=== PATIENT | male | born 1950 | race Caucasian/White ===

== ENCOUNTER 2017-02-08 13:38 | Emergency (ER) | payer MEDICARE, OTHER ==
[~2017-02-08] VITALS: Ht 172.7 cm; Wt 77.1 kg
[~2017-02-08 13:38] MED LIST: ATIVAN0.5 MG ORAL; BENADRYL50 MG ORAL; CLOPIDOGREL75 MG; FLOMAX0.4 MG ORAL; LAMICTAL5 MG PO; LEXAPRO10 MG ORAL; LISINOPRIL5 MG; SIMVASTATIN5 MG ORAL; THORAZINE10 MG PO; TRAZODONE HCL150 MG ORAL; UNOBMED
[2017-02-08] MEDS ORDERED: ASPIRIN81 MG ORAL (14:14)
[2017-02-08] MEDS ORDERED: SIMVASTATIN40 MG ORAL (14:14)
[2017-02-08 14:29] VITALS: BP 146/92
[2017-02-08 14:41] LABS: BASOPHILS % (AUTO) 1.1 % (0.0-2.0); EOSINOPHILS % (AUTO) 1.4 % (0.0-3.0); LYMPHOCYTES % (AUTO) 24.4 % (20.0-45.0); MEAN CORPUSCULAR HEMOGLOBIN 30.7 PG (27.0-31.0); MEAN CORPUSCULAR HGB CONC 34.6 G/DL (32.0-36.0); MEAN CORPUSCULAR VOLUME 89 FL (80-99); MEAN PLATELET VOLUME 5.8 FL (6.5-10.1); MONOCYTES % (AUTO) 8.6 % (1.0-10.0); NEUTROPHILS % (AUTO) 64.5 % (45.0-75.0); PLATELET COUNT 410 K/UL (150-450); RED CELL DISTRIBUTION WIDTH 12.5 % (11.6-14.8); WHITE BLOOD COUNT 8.3 K/UL (4.8-10.8)
[2017-02-08 14:49] LABS: PROTHROMBIN TIME 10.3 SEC (9.30-11.50)
[2017-02-08 14:56] LABS: ANION GAP 11 mmol/L (5-15); CALCIUM 9.2 MG/DL (8.5-10.1); CARBON DIOXIDE 21 MMOL/L (21-32); CHLORIDE 104 MMOL/L (98-107); CREATININE 1.5 MG/DL (0.55-1.30); GLOMERULAR FILTRATION RATE 46.5 mL/min (>60); POTASSIUM 4.4 MMOL/L (3.5-5.1); SODIUM 136 MMOL/L (136-145)
[2017-02-08 15:01] LABS: ALANINE AMINOTRANSFERASE 40 U/L (12-78); ALBUMIN/GLOBULIN RATIO 0.9 (1.0-2.7); ASPARTATE AMINO TRANSFERASE 25 U/L (15-37); LIPASE 148 U/L (73-393); TOTAL PROTEIN 7.6 G/DL (6.4-8.2)
[2017-02-08 15:25] LABS: APPEARANCE,URINE CLEAR; KETONES,URINE NEGATIVE (NEGATIVE); LEUKOCYTE ESTERASE ,URINE NEGATIVE (NEGATIVE); NITRITE,URINE NEGATIVE (NEGATIVE); PH,URINE 5 (4.5-8.0); PROTEIN,URINE NEGATIVE (NEGATIVE); UROBILINOGEN,URINE NORMAL MG/DL (0.0-1.0)
[2017-02-08] MEDS ORDERED: TYLENOL EXTRA500 MG ORAL (15:44)
[2017-02-08] MEDS ORDERED: METAMUCIL POWD575 GM PO (15:44)
[2017-02-08] MEDS ORDERED: ZOFRAN4 M3 ORAL (15:44)
[2017-02-08 15:52] VITALS: BP_SYST 141; BP_SYST 146; BP_DIAS 87; BP_DIAS 92
--- NOTE | 2017-02-08 22:16 | Emergency Room Report ---
History of Present Illness General Chief Complaint: Diarrhea Source: Patient, EMS Present Illness HPI The patient is a 66-year-old male with a history of schizophrenia and anxiety disorder presenting for diarrhea. He states that he has had uncontrollable diarrhea for the past 3 days. He describes this as watery and brown. He denies any other complaints including nausea, vomiting, fever, chills, abdominal pain, fever, chills. He denies any recent travel or sick contacts. Allergies: Coded Allergies: LITHIUM (Unverified Allergy, Unknown, 12/19/13) Patient History Past Medical History: see triage record Pertinent Family History: none Reviewed Nursing Documentation: PMH: Agreed, PSxH: Agreed Nursing Documentation-PMH Hx Cardiac Problems: Yes - STENTS Hx Hypertension: Yes History Of Psychiatric Problem: Yes Review of Systems All Other Systems: negative except mentioned in HPI Physical Exam Vital Signs Date Time Temp Pulse Resp B/P (MAP) Pulse Ox O2 Delivery O2 Flow Rate FiO2 02/08/17 13:35 98.8 106 20 146/92 98 Room Air Sp02 EP Interpretation: reviewed, normal General Appearance: no apparent distress, alert, GCS 15, non-toxic Head: normocephalic, atraumatic Eyes: bilateral eye normal inspection, bilateral eye PERRL ENT: hearing grossly normal, normal pharynx, no angioedema, normal voice Neck: full range of motion, supple/symm/no masses Respiratory: chest non-tender, lungs clear, normal breath sounds, speaking full sentences Cardiovascular #1: regular rate, rhythm, no edema Gastrointestinal: normal bowel sounds, non tender, soft, non-distended, no guarding, no rebound Genitourinary: normal inspection, no CVA tenderness Musculoskeletal: back normal, gait/station normal, normal range of motion, non- tender Neurologic: alert, oriented x3, responsive, motor strength/tone normal, sensory intact, speech normal Psychiatric: judgement/insight normal, memory normal, mood/affect normal, no suicidal/homicidal ideation Skin: normal color, no rash, warm/dry, well hydrated Medical Decision Making PA Attestation Dr. Krause is my supervising physician. Patient management was discussed with my supervising physician Diagnostic Impression: Primary Impression: Diarrhea Qualified Codes: R19.7 - Diarrhea, unspecified ER Course The patient is a 66-year-old male with a history of schizophrenia and anxiety disorder presenting for diarrhea Differential diagnoses considered include but not limited to gastritis, pancreatitis, appendicitis, diverticulitis, among others PE: vitals are stable. Afebrile. NAD RRR Lungs CTA bilat Abd is soft and non tender. No guarding. Labs: Unremarkable. BUN/Cr elevated, consistent with past results The patient is given IV fluids and Zofran and states that he is feeling much better. This is most likely viral gastroenteritis. He'll be discharged home with the ER precautions. Laboratory Tests Test 02/08/17 14:05 02/08/17 15:15 White Blood Count 8.3 K/UL (4.8-10.8) Red Blood Count 4.80 M/UL (4.70-6.10) Hemoglobin 14.7 G/DL (14.2-18.0) Hematocrit 42.6 % (42.0-52.0) Mean Corpuscular Volume 89 FL (80-99) Mean Corpuscular Hemoglobin 30.7 PG (27.0-31.0) Mean Corpuscular Hemoglobin Concent 34.6 G/DL (32.0-36.0) Red Cell Distribution Width 12.5 % (11.6-14.8) Platelet Count 410 K/UL (150-450) Mean Platelet Volume 5.8 FL (6.5-10.1) L Neutrophils (%) (Auto) 64.5 % (45.0-75.0) Lymphocytes (%) (Auto) 24.4 % (20.0-45.0) Monocytes (%) (Auto) 8.6 % (1.0-10.0) Eosinophils (%) (Auto) 1.4 % (0.0-3.0) Basophils (%) (Auto) 1.1 % (0.0-2.0) Prothrombin Time 10.3 SEC (9.30-11.50) Prothrombin Time INR 1.0 (0.9-1.1) PTT 25 SEC (23-33) Sodium Level 136 MMOL/L (136-145) Potassium Level 4.4 MMOL/L (3.5-5.1) Chloride Level 104 MMOL/L (98-107) Carbon Dioxide Level 21 MMOL/L (21-32) Anion Gap 11 mmol/L (5-15) Blood Urea Nitrogen 27 mg/dL (7-18) H Creatinine 1.5 MG/DL (0.55-1.30) H Estimate Glomerular Filtration Rate 46.5 mL/min (>60) Glucose Level 137 MG/DL (74-106) H Calcium Level 9.2 MG/DL (8.5-10.1) Total Bilirubin 0.4 MG/DL (0.2-1.0) Aspartate Amino Transferase (AST) 25 U/L (15-37) Alanine Aminotransferase (ALT) 40 U/L (12-78) Alkaline Phosphatase 71 U/L (46-116) Total Protein 7.6 G/DL (6.4-8.2) Albumin 3.5 G/DL (3.4-5.0) Globulin 4.1 g/dL Albumin/Globulin Ratio 0.9 (1.0-2.7) L Lipase 148 U/L (73-393) Urine Color Pale yellow Urine Appearance Clear Urine pH 5 (4.5-8.0) Urine Specific [place] 1.020 (1.005-1.035) Urine Protein Negative (NEGATIVE) Urine Glucose (UA) Negative (NEGATIVE) Urine Ketones Negative (NEGATIVE) Urine Occult Blood Negative (NEGATIVE) Urine Nitrite Negative (NEGATIVE) Urine Bilirubin Negative (NEGATIVE) Urine Urobilinogen Normal MG/DL (0.0-1.0) Urine Leukocyte Esterase Negative (NEGATIVE) Lab Results Impression Unremarkable Last Vital Signs Date Time Temp Pulse Resp B/P (MAP) Pulse Ox O2 Delivery O2 Flow Rate FiO2 02/08/17 15:52 98.8 85 20 146/92 98 Room Air Status: improved Disposition: HOME, SELF-CARE Condition: Improved Scripts Psyllium Husk (with Sugar) (METAMUCIL POWDER) 575 Gm Powder 1 TBS PO BID, #575 GM Prov: TERZIAN,BROCK P.A. 02/08/17 Ondansetron* (ZOFRAN*) 4 Mg Tablet 4 MG ORAL Q6H Y for Nausea & Vomiting, #12 TAB Prov: TERZIAN,BROCK P.A. 02/08/17 Acetaminophen* (TYLENOL EXTRA STRENGTH*) 500 Mg Tablet 500 MG ORAL Q8H Y for Prn Headache/Temp > 101, #30 TAB 0 Refills Prov: TERZIAN,BROCK P.A. 02/08/17 Patient Instructions: Diarrhea, Adult Additional Instructions: I discussed my findings with the patient. All questions and concerns have been answered. Treatment and medication compliance have been addressed. I advised the patient that they need to follow up with PMD in 3-5 days. Return to ED if symptoms worsen, new symptoms arise Such as fever, blood in stools, or if needed for any reason. Patient verbalized understanding of discharge instructions. BROCK MONTEMAYOR Feb 08, 2017 22:16
== END 2017-02-08 15:55 | disposition home or self-care (01) ==
LOC: EDBD 13:38 → EMR 14:05
DX: R19.7 Diarrhea, unspecified (principal); I10 Essential (primary) hypertension; F20.9 Schizophrenia, unspecified; F41.9 Anxiety disorder, unspecified; Z88.8 Allergy status to other drugs, medicaments and biological substances
CPT/HCPCS: 36415; 80053; 81003; 83690; 85025; 85610; 85730; 96361; 96374; 99284; J2405

== ENCOUNTER 2017-10-25 08:57 | Outpatient (CLI) | payer MEDICARE ==
[~2017-10-25 08:57] MED LIST changes: +ASPIRIN81 MG ORAL; +METAMUCIL POWD575 GM PO; +SIMVASTATIN40 MG ORAL; +TYLENOL EXTRA500 MG ORAL; +ZOFRAN4 M3 ORAL
== END 2017-10-25 10:57 | disposition home or self-care (01) ==
LOC: ECT 08:57
DX: F33.2 Major depressive disorder, recurrent severe without psychotic features (principal); I10 Essential (primary) hypertension; E11.9 Type 2 diabetes mellitus without complications; I25.2 Old myocardial infarction; Z91.5 Personal history of self-harm; Z79.84 Long term (current) use of oral hypoglycemic drugs

== ENCOUNTER 2017-11-05 05:36 | Outpatient (RCR) | payer MEDICARE ==
[~2017-11-05] VITALS: Ht 170.2 cm; Wt 80.3 kg
[2017-11-05] VITALS (7 sets, daily range): BP systolic 99–129; BP diastolic 52–67
[2017-11-05] MEDS ORDERED: Succinylcholine 20mg/ml 10ml vial ONE ×2 (05:37)
[2017-11-05] MEDS ORDERED: NS 500ML ONE ×2 (05:37)
[2017-11-05] MEDS ORDERED: Methohexital Sodium Syr 100mg/10ml IVP ONE ×2 (05:37)
[2017-11-05] MEDS ORDERED: Midazolam 2mg/2ml Inj ONE ×2 (05:37)
[2017-11-05] MEDS ORDERED: Sodium Chloride 500ML 500 ML IV ONE (09:38)
[2017-11-07] MEDS ORDERED: Succinylcholine 20mg/ml 10ml vial ONE (08:00)
[2017-11-07] MEDS ORDERED: Methohexital Sodium Syr 100mg/10ml IVP ONE (08:00)
[2017-11-07] MEDS ORDERED: Midazolam 2mg/2ml Inj ONE (08:00)
[2017-11-07] MEDS ORDERED: NS 500ML ONE (08:00)
[2017-11-07 10:40] VITALS: BP_SYST 115; BP_SYST 154; BP_DIAS 66; BP_DIAS 72
[2017-11-07] MEDS ORDERED: Sodium Chloride 500ML 500 ML IV ONE (10:52)
[2017-11-07 10:55] VITALS: BP 154/66
[2017-11-07 11:00] VITALS: BP 140/72
[2017-11-07 11:05] VITALS: BP 142/64
[2017-11-07 11:10] VITALS: BP 139/72
[2017-11-09] MEDS ORDERED: Midazolam 2mg/2ml Inj ONE (08:00)
[2017-11-09] MEDS ORDERED: SUMAtriptan 6mg/0.5ml Inj SUBQ ONE (08:00)
[2017-11-09] MEDS ORDERED: NS 500ML ONE (08:00)
[2017-11-09] MEDS ORDERED: Methohexital Sodium Syr 100mg/10ml IVP ONE (08:00)
[2017-11-09] MEDS ORDERED: Sodium Chloride 500ML 500 ML IV ONE (08:35)
[2017-11-09 08:44] VITALS: BP 118/80
[2017-11-09 09:00] VITALS: BP 140/73
[2017-11-09 09:05] VITALS: BP 148/86
[2017-11-09 09:10] VITALS: BP 138/65
[2017-11-09 09:15] VITALS: BP 130/63
[2017-11-12 07:55] VITALS: BP 109/70
[2017-11-12] MEDS ORDERED: Midazolam 2mg/2ml Inj ONE (08:00)
[2017-11-12] MEDS ORDERED: Succinylcholine 20mg/ml 10ml vial ONE (08:00)
[2017-11-12] MEDS ORDERED: NS 500ML ONE (08:00)
[2017-11-12] MEDS ORDERED: Methohexital Sodium Syr 100mg/10ml IVP ONE (08:00)
[2017-11-12] MEDS ORDERED: Sodium Chloride 500ML 500 ML IV ONE (08:05)
[2017-11-12 08:10] VITALS: BP 130/67
[2017-11-12 08:15] VITALS: BP 128/69
[2017-11-12 08:20] VITALS: BP 130/60
[2017-11-12 08:25] VITALS: BP 116/63
[2017-11-14 09:39] VITALS: BP 111/66
[2017-11-14] MEDS ORDERED: Sodium Chloride 500ML 500 ML IV ONE (09:52)
[2017-11-14 10:00] VITALS: BP 127/60
[2017-11-14 10:05] VITALS: BP 118/59
[2017-11-14 10:10] VITALS: BP 111/57
[2017-11-14 10:15] VITALS: BP 108/58
[2017-11-16] MEDS ORDERED: Succinylcholine 20mg/ml 10ml vial ONE (07:00)
[2017-11-16] MEDS ORDERED: Midazolam 2mg/2ml Inj ONE (07:00)
[2017-11-16] MEDS ORDERED: Methohexital Sodium Syr 100mg/10ml IVP ONE (07:00)
[2017-11-16] MEDS ORDERED: NS 500ML ONE (07:00)
[2017-11-16 07:43] VITALS: BP 109/66
[2017-11-16] MEDS ORDERED: Sodium Chloride 500ML 500 ML IV ONE (07:53)
[2017-11-16 07:55] VITALS: BP 151/67
[2017-11-16 08:00] VITALS: BP 128/57
[2017-11-16 08:05] VITALS: BP 121/60
[2017-11-16 08:10] VITALS: BP 114/65
[2017-11-19] MEDS ORDERED: Midazolam 2mg/2ml Inj ONE (07:00)
[2017-11-19] MEDS ORDERED: Succinylcholine 20mg/ml 10ml vial ONE (07:00)
[2017-11-19] MEDS ORDERED: NS 500ML ONE (07:00)
[2017-11-19] MEDS ORDERED: Methohexital Sodium Syr 100mg/10ml IVP ONE (07:00)
[2017-11-19 09:00] VITALS: BP 112/71
[2017-11-19] MEDS ORDERED: Sodium Chloride 500ML 500 ML IV ONE (09:12)
[2017-11-19 09:15] VITALS: BP 135/55
[2017-11-19 09:20] VITALS: BP 135/58
[2017-11-19 09:25] VITALS: BP 113/61
[2017-11-19 09:29] VITALS: BP 112/71
[2017-11-19 09:30] VITALS: BP 113/54
[2017-11-21] MEDS ORDERED: Methohexital Sodium Syr 100mg/10ml IVP ONE (06:00)
[2017-11-21] MEDS ORDERED: Succinylcholine 20mg/ml 10ml vial ONE (06:00)
[2017-11-21] MEDS ORDERED: NS 500ML ONE (06:00)
[2017-11-21] MEDS ORDERED: Midazolam 2mg/2ml Inj ONE (06:00)
[2017-11-21] MEDS ORDERED: Sodium Chloride 500ML 500 ML IV ONE (10:05)
[2017-11-21 10:10] VITALS: BP 128/67
[2017-11-21 10:15] VITALS: BP 126/54
[2017-11-21 10:20] VITALS: BP 115/57
[2017-11-21 10:25] VITALS: BP 115/61
[2017-11-21 10:30] VITALS: BP 118/59
[2017-11-23] MEDS ORDERED: NS 500ML ONE (06:00)
[2017-11-23] MEDS ORDERED: Succinylcholine 20mg/ml 10ml vial ONE (06:00)
[2017-11-23] MEDS ORDERED: Midazolam 2mg/2ml Inj ONE (06:00)
[2017-11-23] MEDS ORDERED: Methohexital Sodium Syr 100mg/10ml IVP ONE (06:00)
[2017-11-23 08:31] VITALS: BP 108/67
[2017-11-23] MEDS ORDERED: Sodium Chloride 500ML 500 ML IV ONE (08:45)
[2017-11-23 08:50] VITALS: BP 138/72
[2017-11-23 08:55] VITALS: BP 117/64
[2017-11-23 09:00] VITALS: BP 116/60
[2017-11-23 09:05] VITALS: BP 115/59
== END 2017-11-23 | disposition home or self-care (01) ==
LOC: ECT 05:36
DX: F33.2 Major depressive disorder, recurrent severe without psychotic features (principal); I10 Essential (primary) hypertension; E78.5 Hyperlipidemia, unspecified; I25.10 Atherosclerotic heart disease of native coronary artery without angina pectoris; E11.9 Type 2 diabetes mellitus without complications; I25.2 Old myocardial infarction; F10.10 Alcohol abuse, uncomplicated
CPT/HCPCS: 90870; J0330; J2250; J3030; J7040

== ENCOUNTER 2017-11-28 08:28 | Outpatient (RCR) | payer MEDICARE | END 2017-12-23 | disposition home or self-care (01) | LOC: ECT 08:28 | DX: F33.9 Major depressive disorder, recurrent, unspecified (principal); Z53.9 Procedure and treatment not carried out, unspecified reason ==

== ENCOUNTER 2018-07-08 08:41 | Emergency (ER) | payer MEDICARE ==
[~2018-07-08] VITALS: Ht 170.2 cm; Wt 131.5 kg
--- NOTE | 2018-07-08 08:43 | NUR ---
ED Nurse Note: Patient walked into ED from home states that his indwelling jensen that has been placed [address] Mo Velazquez's office, he states that jensen is now leaking, not draining properly and wants to be replaced. Patient reports surgery scheduled 07/11/[address] Velazquez (patient does not know what surgery) patient states that he has been having jensen for 3 years, patient states he needs jensen due to incontinence. Patient is alert and awake x4 ambulatory. patient placed in the room and hospital gown provided, instructed to take off the pants for exam.
[2018-07-08 08:55] VITALS: BP 105/97
[2018-07-08 09:30] VITALS: BP 105/97
--- NOTE | 2018-07-08 09:40 | NUR ---
ER DISCHARGE NOTE: Patient is cleared to be discharged per ERMD Dr. Meza , pt is aox4, on room air, with stable vital signs. pt was given dc instructions, pt was able to verbalize understanding, patient reports having a surgery with Dr. Velazquez on 07/11. patient stated he will follow up with Dr. Velazquez. jensen is intact draining, no leakage noted. patient reports relief from discomfort. pt id band removed without complications. pt is able to ambulate with steady gait. pt took all belongings.
--- NOTE | 2018-07-08 09:40 | Emergency Room Report ---
History of Present Illness General Chief Complaint: Male Urogenital Problems Source: Patient Present Illness HPI Patient presents emergency department today complaining of urinary retention. Patient has a history of urinary retention with overflow incontinence. Patient is currently being cared by Dr. Velazquez. Patient's urologist placed a Jj approximately 3 weeks ago. Since then he has been able to urinate in the bag. However since last night he noted that urinary flow stopped in the Jj. Instead urine is seeping out around the Jj. He is complaining urinary distention and urgency. Denies any fever nausea vomiting diarrhea or chills. Denies any flank pain. No other complaints are noted. States that he try to call his urologist but there is no answer.No other modifying factors. No other associated signs and symptoms. No other complaints were noted. Allergies: Coded Allergies: LITHIUM (Unverified Allergy, Unknown, 12/19/13) Patient History Past Medical History: HTN, other - Urinary retention Past Surgical History: none Pertinent Family History: none Social History: Denies: smoking, alcohol use, drug use Reviewed Nursing Documentation: PMH: Agreed; PSxH: Agreed Nursing Documentation-PMH Past Medical History: No History, Except For Hx Hypertension: Yes Hx Asthma: No Hx COPD: No Review of Systems All Other Systems: negative except mentioned in HPI Physical Exam Vital Signs Date Time Temp Pulse Resp B/P (MAP) Pulse Ox O2 Delivery O2 Flow Rate FiO2 07/08/18 08:43 98.8 95 17 105/97 91 Room Air Sp02 EP Interpretation: reviewed, normal General Appearance: alert, moderate distress - Appears uncomfortable Head: atraumatic Eyes: bilateral eye normal inspection ENT: normal ENT inspection, hearing grossly normal, normal voice Neck: normal inspection, full range of motion, supple, no bony tend Respiratory: normal inspection, lungs clear, normal breath sounds, no respiratory distress, no retraction, no wheezing Cardiovascular #1: regular rate, rhythm, no edema Gastrointestinal: normal inspection, normal bowel sounds, soft, no guarding, no hernia, other - Mild suprapubic distention Genitourinary: no CVA tenderness Musculoskeletal: normal inspection, back normal, normal range of motion Neurologic: normal inspection, alert, responsive, speech normal Psychiatric: normal inspection, judgement/insight normal, mood/affect normal Skin: normal inspection, normal color, no rash Medical Decision Making Diagnostic Impression: Primary Impression: Jj catheter problem Additional Impression: Urine retention ER Course Patient presents emergency department today with urinary retention. Jj malfunction. Differential diagnoses include erosion of Jj, and Jj occlusion. Old Jj was removed new Jj was inserted. Patient had a large amount urine output and felt much more comfortable. Given the patient's feeling comfortable with urinary output now through the Jj patient can be discharged. Recommend close outpatient follow-up with patient's urologist Dr. Velazquez. Last Vital Signs Date Time Temp Pulse Resp B/P (MAP) Pulse Ox O2 Delivery O2 Flow Rate FiO2 07/08/18 08:55 98.8 95 17 105/97 91 Room Air Status: improved Disposition: HOME, SELF-CARE Condition: Stable Patient Instructions: Jj Catheter Care, Adult, Acute Urinary Retention, Male Kai Meza MD Jul 08, 2018 09:40
== END 2018-07-08 09:40 | disposition home or self-care (01) ==
LOC: EMR 09:00
DX: T83.9XXA Unspecified complication of genitourinary prosthetic device, implant and graft, initial encounter (principal); R33.9 Retention of urine, unspecified; I10 Essential (primary) hypertension; Z88.8 Allergy status to other drugs, medicaments and biological substances; X58.XXXA Exposure to other specified factors, initial encounter; Y92.9 Unspecified place or not applicable
CPT/HCPCS: 51702; 99284

== ENCOUNTER 2018-11-14 16:54 | Emergency (ER) | payer MEDICARE ==
[~2018-11-14] VITALS: Ht 170.2 cm; Wt 81.6 kg
[~2018-11-14 16:54] MED LIST changes: +CIPROFLOXACIN500 M2 ORAL
[2018-11-14 17:05] VITALS: BP 117/75
--- NOTE | 2018-11-14 17:13 | NUR ---
ED Nurse Note: Pt came in due to leakage from his indwelling jensen catheter. The cath was inserted 2 months ago and started leaking 1 week ago. Denies blood in his urine. Urologist was seen weeks ago. AAO x4, ambulatory. Noted old Jensen cath in place with some cloudy urine.
[2018-11-14] MEDS ORDERED: UNOBMED (17:41)
--- NOTE | 2018-11-14 17:50 | NUR ---
ED Nurse Note: Collected urine specimen then sent.
[2018-11-14 18:19] LABS: APPEARANCE,URINE CLOUDY; BILIRUBIN, URINE NEGATIVE (NEGATIVE); GLUCOSE, URINE (UA) NEGATIVE (NEGATIVE); KETONES,URINE 1+ (NEGATIVE); LEUKOCYTE ESTERASE ,URINE 3+ (NEGATIVE); NITRITE,URINE NEGATIVE (NEGATIVE); PH,URINE 5 (4.5-8.0); PROTEIN,URINE 3+ (NEGATIVE); UROBILINOGEN,URINE NORMAL MG/DL (0.0-1.0)
[2018-11-14 18:25] LABS: COLOR,URINE YELLOW
--- NOTE | 2018-11-14 18:27 | Emergency Room Report ---
History of Present Illness General Chief Complaint: Male Urogenital Problems Source: Patient, Medical Record Present Illness HPI 68-year-old male presents with leaking Jj that started his morning no known aggravating or alleviating factors, patient severity is mild, patient states that his pants keep getting wet no fevers no chills no abdominal pain patient states that he has a weak bladder and he sees a urologist he was initially going to go to his urologist today however his friend accidentally took him to the emergency room Allergies: Coded Allergies: LITHIUM (Unverified Allergy, Unknown, 12/19/13) Patient History Past Medical History: see triage record Reviewed Nursing Documentation: PMH: Agreed; PSxH: Agreed Nursing Documentation-PMH Past Medical History: No History, Except For Hx Hypertension: Yes Hx Asthma: No Hx COPD: No Review of Systems All Other Systems: negative except mentioned in HPI Physical Exam Vital Signs Date Time Temp Pulse Resp B/P (MAP) Pulse Ox O2 Delivery O2 Flow Rate FiO2 11/14/18 17:05 98.4 98 18 117/75 (89) 95 Room Air Sp02 EP Interpretation: reviewed, normal General Appearance: well appearing, no apparent distress, alert Head: normocephalic, atraumatic Eyes: bilateral eye PERRL, bilateral eye EOMI ENT: uvula midline, moist mucus membranes Neck: supple, thyroid normal, supple/symm/no masses Respiratory: lungs clear, no respiratory distress, no retraction, no accessory muscle use Cardiovascular #1: normal peripheral pulses, regular rate, rhythm, no edema, no gallop, no murmur Gastrointestinal: non tender, soft, no guarding, no rebound Genitourinary: other - Jj in place, patient with a ventral defect, chronic Musculoskeletal: normal inspection Neurologic: alert, oriented x3 Psychiatric: mood/affect normal Skin: no rash, warm/dry Medical Decision Making Diagnostic Impression: Primary Impression: Jj catheter problem Qualified Codes: T83.9XXA - Unspecified complication of genitourinary prosthetic device, implant and graft, initial encounter Additional Impression: UTI (urinary tract infection) Qualified Codes: T83.511A - Infection and inflammatory reaction due to indwelling urethral catheter, initial encounter; N39.0 - Urinary tract infection , site not specified ER Course Patient presents for Jj catheter replacement Jj was replaced Patient with UTI ABX disposition home with return precautions Laboratory Tests Test 11/14/18 17:50 Urine Color Yellow Urine Appearance Cloudy Urine pH 5 (4.5-8.0) Urine Specific [place] 1.020 (1.005-1.035) Urine Protein 3+ (NEGATIVE) H Urine Glucose (UA) Negative (NEGATIVE) Urine Ketones 1+ (NEGATIVE) H Urine Blood 4+ (NEGATIVE) H Urine Nitrite Negative (NEGATIVE) Urine Bilirubin Negative (NEGATIVE) Urine Urobilinogen Normal MG/DL (0.0-1.0) Urine Leukocyte Esterase 3+ (NEGATIVE) H Urine RBC 5-10 /HPF (0 - 0) H Urine WBC Tntc /HPF (0 - 0) H Urine Squamous Epithelial Cells Occasional /LPF Urine Bacteria Few /HPF (NONE) Last Vital Signs Date Time Temp Pulse Resp B/P (MAP) Pulse Ox O2 Delivery O2 Flow Rate FiO2 11/14/18 17:05 98.4 98 18 117/75 95 Room Air Disposition: HOME, SELF-CARE Condition: Stable Scripts Cefdinir (CEFDINIR) 300 Mg Capsule 300 MG PO BID for 10 Days, #20 CAP Prov: David Gonzalez MD 11/14/18 Referrals: [facility] Patient Instructions: Jj Catheter Care, Adult, [id number], Urinary Tract Infection Additional Instructions: The patient was provided with discharge instructions, notified to follow-up with a primary care doctor and or specialist in the next 24-48 hours, and to return to the ED if they have worsening of their symptoms. Please note that this report is being documented using [employer] technology. This can lead to erroneous entry secondary to incorrect interpretation by the dictating instrument. FOLLOW-UP WITH YOUR UROLOGIST David Mcwilliams MD Nov 14, 2018 18:27
[2018-11-14] MEDS ORDERED: CEFDINIR300 MG PO (18:41)
[2018-11-14 18:56] VITALS: BP 125/70
--- NOTE | 2018-11-14 18:56 | NUR ---
ER DISCHARGE NOTE: Patient is cleared to be discharged per ERMD, pt is aox4, on room air, with stable vital signs. pt was given dc and prescription instructions, pt was able to verbalize understanding, pt id band removed without complications. pt is able to ambulate with steady gait. pt took all belongings and left with his new jensen cath/leg bag.
== END 2018-11-14 18:56 | disposition home or self-care (01) ==
LOC: EMR 18:40
DX: T83.9XXA Unspecified complication of genitourinary prosthetic device, implant and graft, initial encounter (principal); T83.511A Infection and inflammatory reaction due to indwelling urethral catheter, initial encounter; I10 Essential (primary) hypertension; Z88.8 Allergy status to other drugs, medicaments and biological substances; N39.0 Urinary tract infection, site not specified; Y84.6 Urinary catheterization as the cause of abnormal reaction of the patient, or of later complication, without mention of misadventure at the time of the procedure; Y92.9 Unspecified place or not applicable
CPT/HCPCS: 51702; 81003; 87086; 99284

== ENCOUNTER 2018-11-21 10:27 | Emergency (ER) | payer MEDICARE ==
[~2018-11-21] VITALS: Ht 170.2 cm; Wt 81.6 kg
[~2018-11-21 10:27] MED LIST changes: +CEFDINIR300 MG PO
--- NOTE | 2018-11-21 10:56 | Emergency Room Report ---
History of Present Illness General Chief Complaint: General Complaint Source: Patient Present Illness HPI Presents with allegedly leaking Jj. He said he stood up to urinate this morning and urine sprayed from he does not know where. The Jj was placed yesterday at [facility]. They told him he had a urinary tract infection. He got an IV dose of antibiotics there. He was discharged with antibiotics and he is not sure which ones. He denies fevers and chills. He denies abdominal pain. No hematuria. The patient was seen here November 14. He had similar complaints at that time. He had a urinary tract infection at that time. Culture grew yeast. Patient complains of anxiety. He states he takes Ativan 2 mg at least daily. No sore throat, chest pain, palpitations, nausea, vomiting, diarrhea, shortness of breath, joint pain, rashes, depression, anxiety, visual changes, headache. Allergies: Coded Allergies: LITHIUM (Unverified Allergy, Unknown, 12/19/13) Patient History Past Medical History: see triage record Social History: Denies: smoking - Murmur Social History Narrative with friend Reviewed Nursing Documentation: PMH: Agreed; PSxH: Agreed Nursing Documentation-PMH Past Medical History: No History, Except For Hx Hypertension: Yes Hx Asthma: No Hx COPD: No Review of Systems All Other Systems: negative except mentioned in HPI Physical Exam Vital Signs Date Time Temp Pulse Resp B/P (MAP) Pulse Ox O2 Delivery O2 Flow Rate FiO2 11/21/18 10:34 98.4 108 16 131/77 (95) 95 Room Air Sp02 EP Interpretation: reviewed, normal General Appearance: well appearing, no apparent distress, GCS 15 Head: normocephalic Eyes: bilateral eye normal inspection, bilateral eye PERRL, bilateral eye EOMI ENT: moist mucus membranes Cardiovascular #1: regular rate, rhythm Gastrointestinal: normal inspection, non tender, soft, no mass Genitourinary: no CVA tenderness, other - hypospadias -16 [place] Jj present Musculoskeletal: gait/station normal Neurologic: alert Psychiatric: depressed affect, other - Flat affect Skin: no rash Medical Decision Making Diagnostic Impression: Primary Impression: Jj catheter problem Qualified Codes: T83.9XXA - Unspecified complication of genitourinary prosthetic device, implant and graft, initial encounter Additional Impressions: Hypospadias Qualified Codes: Q54.1 - Hypospadias, penile UTI (urinary tract infection) Qualified Codes: T83.511D - Infection and inflammatory reaction due to indwelling urethral catheter, subsequent encounter; N39.0 - Urinary tract infection, site not specified Anxiety Major depression Qualified Codes: F33.9 - Major depressive disorder, recurrent, unspecified ER Course Patient presents with allegedly leaking Jj with hypospadias. Differential includes blocked Jj, urethral laxity, delusions, UTI amongst others. The Jj will be replaced with a larger catheter. Analysis will be obtained. Allegedly he is on antibiotics at this time but does not know which ones. Records will be obtained from [facility]. The patient will be given a dose of Ativan. No leakage after larger Jj placed. Urinalysis with pyuria however antibiotics have already been started. He also has a prescription at his [id number]. It is unclear what the prescription is. Records have been requested from [facility]. At the time of this dictation they are not available. The patient's anxiety is improved. Patient stable for outpatient observation and treatment. Laboratory Tests Test 11/21/18 11:00 Urine Color Yellow Urine Appearance Cloudy Urine pH 5 (4.5-8.0) Urine Specific [place] 1.025 (1.005-1.035) Urine Protein 3+ (NEGATIVE) H Urine Glucose (UA) Negative (NEGATIVE) Urine Ketones Negative (NEGATIVE) Urine Blood 2+ (NEGATIVE) H Urine Nitrite Negative (NEGATIVE) Urine Bilirubin Negative (NEGATIVE) Urine Urobilinogen Normal MG/DL (0.0-1.0) Urine Leukocyte Esterase 3+ (NEGATIVE) H Urine RBC 2-4 /HPF (0 - 0) H Urine WBC 60-80 /HPF (0 - 0) H Urine Squamous Epithelial Cells None /LPF (NONE/OCC) Urine Bacteria Few /HPF (NONE) Last Vital Signs Date Time Temp Pulse Resp B/P (MAP) Pulse Ox O2 Delivery O2 Flow Rate FiO2 11/21/18 11:13 98.4 108 16 131/77 95 Room Air Status: improved Disposition: HOME, SELF-CARE Condition: Improved Antonio Watson MD Nov 21, 2018 10:56
[2018-11-21] MEDS ORDERED: LORazepam 1mg tab ORAL ONE (11:00)
--- NOTE | 2018-11-21 11:00 | NUR ---
ED Nurse Note: pt walked in due to catheter leaking, pt stated that the catheter was placed in [place] yesterday, denies pain. pt is seen by ermd. catheter replaced with F18 catheter and connected to UB, pt able to tolerate the procedure, urine sent to lab.
--- NOTE | 2018-11-21 11:05 | NUR ---
ED Nurse Note: pt medicated as ordered. pt able to tolerate po meds
[2018-11-21 11:13] VITALS: BP 131/77
[2018-11-21 11:32] LABS: APPEARANCE,URINE CLOUDY; BILIRUBIN, URINE NEGATIVE (NEGATIVE); GLUCOSE, URINE (UA) NEGATIVE (NEGATIVE); KETONES,URINE NEGATIVE (NEGATIVE); LEUKOCYTE ESTERASE ,URINE 3+ (NEGATIVE); NITRITE,URINE NEGATIVE (NEGATIVE); PH,URINE 5 (4.5-8.0); PROTEIN,URINE 3+ (NEGATIVE); UROBILINOGEN,URINE NORMAL MG/DL (0.0-1.0)
[2018-11-21 11:42] LABS: COLOR,URINE YELLOW
[2018-11-21 12:36] VITALS: BP 131/77
--- NOTE | 2018-11-21 12:36 | NUR ---
ER DISCHARGE NOTE: Patient is cleared to be discharged per ERMD, pt is aox4, on room air, with stable vital signs. pt was given dc and prescription instructions, pt was able to verbalize understanding, pt id band removed without complications. pt is able to ambulate with steady gait. pt took all belongings.
== END 2018-11-21 12:36 | disposition home or self-care (01) ==
LOC: EMR 11:00
DX: T83.9XXA Unspecified complication of genitourinary prosthetic device, implant and graft, initial encounter (principal); Y84.6 Urinary catheterization as the cause of abnormal reaction of the patient, or of later complication, without mention of misadventure at the time of the procedure; Y92.9 Unspecified place or not applicable; Q54.9 Hypospadias, unspecified; N39.0 Urinary tract infection, site not specified; F41.9 Anxiety disorder, unspecified; F32.9 Major depressive disorder, single episode, unspecified; I10 Essential (primary) hypertension; Z79.899 Other long term (current) drug therapy
CPT/HCPCS: 51702; 81003; 87086; 99284

== ENCOUNTER 2019-01-11 13:35 | Inpatient (IN) | payer MEDICARE ==
[~2019-01-11] VITALS: Ht 170.2 cm; Wt 75.4 kg
[2019-01-11 13:47] VITALS: BP 104/73
--- NOTE | 2019-01-11 13:50 | NUR ---
ED Nurse Note: Patient brought in to ER by ambulance from [facility] due to "Being depressed all of sudden." Patient alert and oriented x4 and bedridden. Skin clean and intact. pt is crying for being sad. No acute distress noted at this time.
[2019-01-11] MEDS ORDERED: Venlafaxine XR 150mg cap ORAL ONE (14:30)
[2019-01-11 14:46] LABS: APPEARANCE,URINE SLIGHTLY CLOUDY; BILIRUBIN, URINE NEGATIVE (NEGATIVE); GLUCOSE, URINE (UA) NEGATIVE (NEGATIVE); KETONES,URINE 1+ (NEGATIVE); LEUKOCYTE ESTERASE ,URINE 3+ (NEGATIVE); NITRITE,URINE POSITIVE (NEGATIVE); PH,URINE 5 (4.5-8.0); PROTEIN,URINE 3+ (NEGATIVE); UROBILINOGEN,URINE 1 MG/DL (0.0-1.0)
[2019-01-11 14:53] LABS: BASOPHILS % (AUTO) 0.8 % (0.0-2.0); HEMATOCRIT 45.3 % (42.0-52.0); HEMOGLOBIN 15.4 G/DL (14.2-18.0); LYMPHOCYTES % (AUTO) 24.3 % (20.0-45.0); MEAN CORPUSCULAR VOLUME 85 FL (80-99); MONOCYTES % (AUTO) 7.9 % (1.0-10.0); PLATELET COUNT 295 K/UL (150-450); RED BLOOD COUNT 5.32 M/UL (4.70-6.10); RED CELL DISTRIBUTION WIDTH 12.4 % (11.6-14.8); WHITE BLOOD COUNT 9.2 K/UL (4.8-10.8)
[2019-01-11 14:56] LABS: COLOR,URINE YELLOW
--- NOTE | 2019-01-11 14:58 | NUR ---
ED Nurse Note: pt is not crying anymore.
--- NOTE | 2019-01-11 14:58 | NUR ---
ED Nurse Note: pt crying and stated "I don't want to go back where I came from. that is very depressing place!" pt was informed that he will be admitted.
[2019-01-11 15:01] LABS: ANION GAP 8 mmol/L (5-15); BLOOD UREA NITROGEN 27 mg/dL (7-18); CALCIUM 9.4 MG/DL (8.5-10.1); CARBON DIOXIDE 28 MMOL/L (21-32); CHLORIDE 107 MMOL/L (98-107); CREATININE 1.3 MG/DL (0.55-1.30); POTASSIUM 4.5 MMOL/L (3.5-5.1); SODIUM 143 MMOL/L (136-145)
[2019-01-11 15:05] LABS: ALANINE AMINOTRANSFERASE 15 U/L (12-78); ALBUMIN 3.3 G/DL (3.4-5.0); ALBUMIN/GLOBULIN RATIO 0.8 (1.0-2.7); ALKALINE PHOSPHATASE 70 U/L (46-116); ASPARTATE AMINO TRANSFERASE 15 U/L (15-37); BILIRUBIN,TOTAL 0.4 MG/DL (0.2-1.0)
[2019-01-11] MEDS ORDERED: cefTRIAXone 1 GM in NS 55 ML IVPB ONE (15:30)
--- NOTE | 2019-01-11 16:00 | NUR ---
ED Nurse Note: pt denied the idea of hurting himself and others. pt stated "I was just too depressed to be there." pt calm and cooperative since he heard he will be admitted.
--- NOTE | 2019-01-11 16:24 | Emergency Room Report ---
History of Present Illness General Chief Complaint: Behavioral Complaint Source: Patient Present Illness HPI 68-year-old male presents ED for evaluation. Patient coming from [facility] stating that he is suicidal and depressed. Does not have a plan. States he feels very anxious. History of schizophrenia and depression. States he has been compliant with his medications but states they are not helping. Denies alcohol or drug use. Denies hearing voices. No other aggravating relieving factors. Denies any other associated symptoms Allergies: Coded Allergies: LITHIUM (Unverified Allergy, Unknown, 12/19/13) Patient History Past Medical History: HTN Past Surgical History: none Pertinent Family History: none Social History: Denies: smoking, alcohol use, drug use Immunizations: UTD Reviewed Nursing Documentation: PMH: Agreed; PSxH: Agreed Nursing Documentation-PMH Hx Cardiac Problems: No - schizophrenia, depression Hx Hypertension: Yes Hx Asthma: No Hx COPD: No Review of Systems All Other Systems: negative except mentioned in HPI Physical Exam Vital Signs Date Time Temp Pulse Resp B/P (MAP) Pulse Ox O2 Delivery O2 Flow Rate FiO2 01/11/19 13:45 97.9 100 18 104/73 (83) 96 Room Air Sp02 EP Interpretation: reviewed, normal General Appearance: no apparent distress, alert, GCS 15, non-toxic Head: normocephalic Eyes: bilateral eye normal inspection, bilateral eye PERRL ENT: normal ENT inspection Neck: normal inspection Respiratory: normal inspection Cardiovascular #1: normal inspection Gastrointestinal: normal inspection Rectal: deferred Genitourinary: no CVA tenderness, other - jensen catheter in place Musculoskeletal: normal inspection Neurologic: alert, oriented x3, responsive, motor strength/tone normal, sensory intact, speech normal Psychiatric: depressed affect, anxious Skin: other - see nursing notes Lymphatic: normal inspection Medical Decision Making Diagnostic Impression: Primary Impression: Acute encephalopathy Additional Impressions: UTI (urinary tract infection) Qualified Codes: T83.511A - Infection and inflammatory reaction due to indwelling urethral catheter, initial encounter; N39.0 - Urinary tract infection , site not specified Major depression Qualified Codes: F33.1 - Major depressive disorder, recurrent, moderate Suicidal ideations ER Course Hospital Course 68-year-old male presents to ED for suicidal ideation. History of depression. Differential diagnoses include: Major depressive disorder, unspecified psychosis , EtOH abuse, drug abuse Clinical course Patient placed on stretcher. On one to one observation. After initial history and physical I ordered labs, IVFs, UA U. tox Labs-electrolytes normal, aspirin/Tylenol levels normal, EtOH level normal, U. tox negative, UA + bacteria Patient given dose of Effexor in ED. Patient cannot be medically cleared due to indwelling Jensen catheter. Patient will require admission given antibiotics. Discussed case with Dr. Quezada and she agrees to consult. Patient will be admitted to Dr Adkins's service i. I feel this is a highly complex case requiring extensive working including EKG/Rhythm strip, Xray/CT/US, Blood/urine lab work, repeat exams while in ED, and administration of strong opiates/narcotics for pain control, admission to hospital or close patient follow up. diagnosis - acute encephalopathy, UTI, major depression, suicidal ideations admitted to floor in serious condition Labs Test 01/11/19 14:22 01/11/19 14:26 White Blood Count 9.2 K/UL (4.8-10.8) Red Blood Count 5.32 M/UL (4.70-6.10) Hemoglobin 15.4 G/DL (14.2-18.0) Hematocrit 45.3 % (42.0-52.0) Mean Corpuscular Volume 85 FL (80-99) Mean Corpuscular Hemoglobin 28.9 PG (27.0-31.0) Mean Corpuscular Hemoglobin Concent 34.0 G/DL (32.0-36.0) Red Cell Distribution Width 12.4 % (11.6-14.8) Platelet Count 295 K/UL (150-450) Mean Platelet Volume 5.3 FL (6.5-10.1) Neutrophils (%) (Auto) 66.0 % (45.0-75.0) Lymphocytes (%) (Auto) 24.3 % (20.0-45.0) Monocytes (%) (Auto) 7.9 % (1.0-10.0) Eosinophils (%) (Auto) 1.0 % (0.0-3.0) Basophils (%) (Auto) 0.8 % (0.0-2.0) Sodium Level 143 MMOL/L (136-145) Potassium Level 4.5 MMOL/L (3.5-5.1) Chloride Level 107 MMOL/L (98-107) Carbon Dioxide Level 28 MMOL/L (21-32) Anion Gap 8 mmol/L (5-15) Blood Urea Nitrogen 27 mg/dL (7-18) Creatinine 1.3 MG/DL (0.55-1.30) Estimat Glomerular Filtration Rate 54.6 mL/min (>60) Glucose Level 98 MG/DL (74-106) Calcium Level 9.4 MG/DL (8.5-10.1) Total Bilirubin 0.4 MG/DL (0.2-1.0) Aspartate Amino Transf (AST/SGOT) 15 U/L (15-37) Alanine Aminotransferase (ALT/SGPT) 15 U/L (12-78) Alkaline Phosphatase 70 U/L (46-116) Total Protein 7.7 G/DL (6.4-8.2) Albumin 3.3 G/DL (3.4-5.0) Globulin 4.4 g/dL Albumin/Globulin Ratio 0.8 (1.0-2.7) Salicylates Level 0.8 ug/mL (2.8-20) Acetaminophen Level < 2 MCG/ML (10-30) Valproic Acid (Depakene) Level 91 MCG/ML (50-100) Serum Alcohol < 3 mg/dL Urine Color Yellow Urine Appearance Slightly cloudy Urine pH 5 (4.5-8.0) Urine Specific [place] 1.020 (1.005-1.035) Urine Protein 3+ (NEGATIVE) Urine Glucose (UA) Negative (NEGATIVE) Urine Ketones 1+ (NEGATIVE) Urine Blood 3+ (NEGATIVE) Urine Nitrite Positive (NEGATIVE) Urine Bilirubin Negative (NEGATIVE) Urine Urobilinogen 1 MG/DL (0.0-1.0) Urine Leukocyte Esterase 3+ (NEGATIVE) Urine RBC 5-10 /HPF (0 - 0) Urine WBC 60-80 /HPF (0 - 0) Urine Squamous Epithelial Cells Occasional /LPF Urine Bacteria Many /HPF (NONE) Urine Opiates Screen Negative (NEGATIVE) Urine Barbiturates Screen Negative (NEGATIVE) Phencyclidine (PCP) Screen Negative (NEGATIVE) Urine Amphetamines Screen Negative (NEGATIVE) Urine Benzodiazepines Screen Positive (NEGATIVE) Urine Cocaine Screen Negative (NEGATIVE) Urine Marijuana (THC) Screen Negative (NEGATIVE) Last Vital Signs Date Time Temp Pulse Resp B/P (MAP) Pulse Ox O2 Delivery O2 Flow Rate FiO2 10/19/19 13:47 100 18 Room Air 01/11/19 13:47 97.9 104/73 96 Status: improved Disposition: ADMITTED INPATIENT Condition: Serious Referrals: NON PHYSICIAN (PCP) Bassam Austin MD Jan 11, 2019 16:24
--- NOTE | 2019-01-11 17:50 | NUR ---
ED Nurse Note: report given to Angelina RN
--- NOTE | 2019-01-11 18:15 | NUR ---
ED Nurse Note: pt left unit with 1 underwriting technician in stable condition.
[2019-01-11 18:30] VITALS: BP 124/71
--- NOTE | 2019-01-11 18:31 | NUR ---
NURSE NOTES: RECEIVED PATIENT A/A/OX3, ABLE TO VERBALIZE NEEDS. PATIENT IS CALM AND KEPT COMFORTABLE. PERSONAL BELONGINGS REVIEWED AND NOTED. V/S TAKEN AND RECORDED. AFEBRILE. SKIN IS INTACT. PATIENT HAS F/C PATENT AND DRAINING WELL. MED REC REVIEWED. KEEP BED IN THE LOWEST POSITION. SIDERAILS ARE UP X3. CALL LIGHT IS WITHIN REACH. WILL NOTIFY PMD FOR ADMISSION ORDERS. WILL CONT TO MONITOR.
--- NOTE | 2019-01-11 19:00 | NUR ---
HAND-OFF: Report given to Lexie.
--- NOTE | 2019-01-11 19:30 | NUR ---
NURSE NOTES: Received patient in bed, awake, but easily falling asleep, able to make his needs known, VSS, afebrile, able to make his needs known, call light is within reach, bed is lowered, locked and alarm is on, IV site is clean dry and intact. Will continue to monitor for comfort and safety.
[2019-01-11 20:00] VITALS: BP 107/62
[2019-01-11] MEDS ORDERED: HYDROcodone/Acetamin 5/325 tab ORAL PRN (20:00)
[2019-01-11] MEDS: Atorvastatin 20mg tab ORAL SCH (20:31)
[2019-01-11 21:36] VITALS: BP 107/62
[2019-01-11] MEDS: LORazepam 0.5mg tab ORAL PRN (22:21)
[2019-01-12] VITALS: BP 120/67
[2019-01-12] MEDS ORDERED: cefTRIAXone 2 GM in D5W 55 ML IVPB SCH (03:00)
[2019-01-12 04:00] VITALS: BP 109/69
[2019-01-12] MEDS: LORazepam 0.5mg tab ORAL PRN (04:12)
[2019-01-12 06:18] LABS: EOSINOPHILS % (AUTO) 1.9 % (0.0-3.0); HEMATOCRIT 41.4 % (42.0-52.0); HEMOGLOBIN 14.1 G/DL (14.2-18.0); LYMPHOCYTES % (AUTO) 25.8 % (20.0-45.0); MEAN CORPUSCULAR VOLUME 85 FL (80-99); MONOCYTES % (AUTO) 8.3 % (1.0-10.0); PLATELET COUNT 260 K/UL (150-450); RED BLOOD COUNT 4.86 M/UL (4.70-6.10); RED CELL DISTRIBUTION WIDTH 12.4 % (11.6-14.8); WHITE BLOOD COUNT 6.6 K/UL (4.8-10.8)
[2019-01-12 06:59] LABS: ANION GAP 7 mmol/L (5-15); BLOOD UREA NITROGEN 25 mg/dL (7-18); CALCIUM 8.4 MG/DL (8.5-10.1); CARBON DIOXIDE 26 MMOL/L (21-32); CHLORIDE 109 MMOL/L (98-107); CHOLESTEROL 100 MG/DL (< 200); CREATININE 1.2 MG/DL (0.55-1.30); HDL CHOLESTEROL 31 MG/DL (40-60); POTASSIUM 4.4 MMOL/L (3.5-5.1); SODIUM 142 MMOL/L (136-145); TRIGLYCERIDES 44 MG/DL (30-150)
--- NOTE | 2019-01-12 07:08 | NUR ---
HAND-OFF: Report given to Anastasiya ABURTO.
[2019-01-12 08:00] VITALS: BP 130/75
--- NOTE | 2019-01-12 08:00 | NUR ---
NURSE NOTES: Patient is alert to name,respirations unlabored.patient Jj catheter is in place and draining yellow urine.Patient eating breakfast ,bed alarm is laborer concrete plant light within reach.
[2019-01-12] MEDS: Aspirin Baby 81mg ORAL SCH (08:29)
[2019-01-12] MEDS: Lisinopril 2.5mg tab ORAL SCH (08:30)
[2019-01-12] MEDS: Enoxaparin 40mg Inj SUBQ SCH (08:31)
--- NOTE | 2019-01-12 09:30 | NUR ---
CHARGE NURSE NOTE: Pt is very anxious, Ativan 0.5 mg PO is not helping. was called, message left.
[2019-01-12] MEDS: LORazepam 1mg tab ORAL PRN ×3 (09:46→21:57)
--- NOTE | 2019-01-12 09:47 | History & Physical ---
History and Physical History & Physicial seen and examined. Dictation completed on 943 AM Wilber Adkins MD Jan 12, 2019 09:47
--- NOTE | 2019-01-12 09:48 | General Progress Note ---
Assessment/Plan Assessment/Plan: Full Dictation in progress A/P: 1- SIRS 2- UTI 3- PSych 4- Incontinency/Neurologic bladder Plan; Change abx to cefepim will monitor pending cultures Psych consulted Subjective Allergies: Coded Allergies: LITHIUM (Unverified Allergy, Unknown, 12/19/13) Objective Last 24 Hour Vital Signs Date Time Temp Pulse Resp B/P (MAP) Pulse Ox O2 Delivery O2 Flow Rate FiO2 01/12/19 08:30 130/75 01/12/19 08:00 97.7 73 18 130/75 (93) 96 01/12/19 04:00 97.0 82 19 109/69 (82) 01/12/19 00:00 98.6 64 19 120/67 (84) 96 01/11/19 21:36 97.0 60 19 107/62 (77) 98 01/11/19 21:11 Room Air 01/11/19 21:00 Room Air 01/11/19 20:00 97.2 60 19 107/62 (77) 98 01/11/19 18:30 97.7 64 18 124/71 (88) 97 01/11/19 18:15 98.3 89 18 108/77 98 Room Air 01/11/19 18:03 97.9 01/11/19 13:47 100 18 Room Air 01/11/19 13:47 97.9 87 18 104/73 96 Room Air 01/11/19 13:45 97.9 100 18 104/73 (83) 96 Room Air Intake and Output 01/11/19 01/12/19 19:00 07:00 Intake Total 55 ml Balance 55 ml Intake Oral 0 ml IV Total 55 ml # Bowel Movements 2 Laboratory Tests 01/11/19 14:22: White Blood Count 9.2, Red Blood Count 5.32, Hemoglobin 15.4, Hematocrit 45.3, Mean Corpuscular Volume 85, Mean Corpuscular Hemoglobin 28.9, Mean Corpuscular Hemoglobin Concent 34.0, Red Cell Distribution Width 12.4, Platelet Count 295, Mean Platelet Volume 5.3L, Neutrophils (%) (Auto) 66.0, Lymphocytes (%) (Auto) 24.3, Monocytes (%) (Auto) 7.9, Eosinophils (%) (Auto) 1.0, Basophils (%) (Auto ) 0.8, Sodium Level 143, Potassium Level 4.5, Chloride Level 107, Carbon Dioxide Level 28, Anion Gap 8, Blood Urea Nitrogen 27H, Creatinine 1.3, Estimat Glomerular Filtration Rate 54.6, Glucose Level 98, Calcium Level 9.4, Total Bilirubin 0.4, Aspartate Amino Transf (AST/SGOT) 15, Alanine Aminotransferase ( ALT/SGPT) 15, Alkaline Phosphatase 70, Pro-B-Type Natriuretic Peptide 240H, Total Protein 7.7, Albumin 3.3L, Globulin 4.4, Albumin/Globulin Ratio 0.8L, Salicylates Level 0.8L, Acetaminophen Level < 2L, Valproic Acid (Depakene) Level 91, Serum Alcohol < 3 01/11/19 14:26: Urine Color Yellow, Urine Appearance Slightly cloudy, Urine pH 5, Urine Specific [place] 1.020, Urine Protein 3+H, Urine Glucose (UA) Negative, Urine Ketones 1+H, Urine Blood 3+H, Urine Nitrite PositiveH, Urine Bilirubin Negative , Urine Urobilinogen 1H, Urine Leukocyte Esterase 3+H, Urine RBC 5-10H, Urine WBC 60-80H, Urine Squamous Epithelial Cells Occasional, Urine Bacteria ManyH, Urine Opiates Screen Negative, Urine Barbiturates Screen Negative, Phencyclidine (PCP) Screen Negative, Urine Amphetamines Screen Negative, Urine Benzodiazepines Screen PositiveH, Urine Cocaine Screen Negative, Urine Marijuana (THC) Screen Negative 01/12/19 05:30: White Blood Count 6.6, Red Blood Count 4.86, Hemoglobin 14.1L, Hematocrit 41.4L , Mean Corpuscular Volume 85, Mean Corpuscular Hemoglobin 29.0, Mean Corpuscular Hemoglobin Concent 34.1, Red Cell Distribution Width 12.4, Platelet Count 260, Mean Platelet Volume 5.2L, Neutrophils (%) (Auto) 63.0, Lymphocytes ( %) (Auto) 25.8, Monocytes (%) (Auto) 8.3, Eosinophils (%) (Auto) 1.9, Basophils (%) (Auto) 1.0, Sodium Level 142, Potassium Level 4.4, Chloride Level 109H, Carbon Dioxide Level 26, Anion Gap 7, Blood Urea Nitrogen 25H, Creatinine 1.2, Estimat Glomerular Filtration Rate 59.9, Glucose Level 113H, Calcium Level 8.4L , Hemoglobin A1c 5.7, Troponin I 0.000, Triglycerides Level 44, Cholesterol Level 100, LDL Cholesterol 63, HDL Cholesterol 31L, Cholesterol/HDL Ratio 3.2L, Thyroid Stimulating Hormone (TSH) 3.648 Height (Feet): 5 Height (Inches): 7.00 Weight (Pounds): 180 Wilber Adkins MD Jan 12, 2019 09:48
[2019-01-12 11:58] VITALS: BP 139/70
[2019-01-12] MEDS: Cefepime HCl 1 GM in D5W 55 ML IVPB SCH (12:36)
--- NOTE | 2019-01-12 14:32 | NUR ---
CHARGE NURSE NOTE: Pt is crying, very depressed, wants to see psychiatrist. on the case, she was called and notified.
[2019-01-12 15:48] VITALS: BP 130/72
--- NOTE | 2019-01-12 18:00 | NUR ---
NURSE NOTES: Patient resting,calm,patient received Ativan 1mg po prn as ordered ,patient state he is feeling calmer. Bed alarm on,call light within reach.Patient jensen catheter remains in place and secured.
--- NOTE | 2019-01-12 19:05 | NUR ---
HAND-OFF: Report given to Kim ABURTO.
--- NOTE | 2019-01-12 19:18 | NUR ---
NURSE NOTES: Received patient in bed, awake, alert, oriented x3, able to make his needs known, IV site is clean dry and intact, no acute distress noted, Jj catheter is in place, intact and draining well. Call light is within reach, bed is lowered, locked and alarm is on. Will continue to monitor for comfort and safety.
[2019-01-12 20:00] VITALS: BP 106/54
[2019-01-12] MEDS: Atorvastatin 20mg tab ORAL SCH (20:22)
[2019-01-13] VITALS: BP 115/60
[2019-01-13 04:00] VITALS: BP 127/79
[2019-01-13] MEDS: LORazepam 1mg tab ORAL PRN ×3 (05:25→15:54)
--- NOTE | 2019-01-13 07:28 | NUR ---
HAND-OFF: Report given to Miguel ABURTO.
--- NOTE | 2019-01-13 07:54 | NUR ---
NURSE NOTES: Received pt in bed, AAO x 3. Room air. No c/o of pain, but asking for med for anxiety. Jj cath noted. IV on LAC 20g intact and patent, with saline lock. Side rails x 2. Bed in the lowest, locked, and alarm on. Call light within reach.
[2019-01-13 08:00] VITALS: BP 105/59
[2019-01-13] MEDS: Lisinopril 2.5mg tab ORAL SCH (09:00)
[2019-01-13] MEDS: Aspirin Baby 81mg ORAL SCH (09:17)
[2019-01-13] MEDS: Enoxaparin 40mg Inj SUBQ SCH (09:18)
[2019-01-13 12:00] VITALS: BP 130/81
[2019-01-13] MEDS ORDERED: LORazepam Inj 2mg/ml 1ml IV PRN (12:15)
[2019-01-13] MEDS: Cefepime HCl 1 GM in D5W 55 ML IVPB SCH (12:29)
--- NOTE | 2019-01-13 12:50 | NUR ---
CASE MANAGEMENT: INITIAL REVIEW 68 YR OLD MALE ZIYAD FROM [facility] CC: BEHAVIORAL COMPLAINT SI: ACUTE ENCEPHALOPATHY/ SUCIDAL IDEATION/ URINARY RETENTION 97.9 100 18 104/73 96% RA IS: IVF NS BOLUS X1 VENLAFAXINE PO X1 IV CEFTRIAXONE X1 : 4E MED SURG UNIT DCP: RETURN TO [facility] WHEN MEDICALLY CLEARED CASE MANAGEMENT: INITIAL REVIEW 01/13/19 SI: ACUTE ENCEPHALOPATHY/ SUCIDAL IDEATION/ URINARY RETENTION 97.9 100 18 104/73 96% RA IS: IV CEFEPIME Q24 LOVENOX SQ QD PROTONIX PO QD PLAVIX PO QD LIPITOR PO HS LEXAPRO PO QD : 4E MED SURG UNIT DCP: RETURN TO [facility] WHEN MEDICALLY CLEARED Addendum: 01/13/19 at 1610 by RAJANI BAUER LVN CASE MANAGEMENT: REVIEW 01/13/19 SI: ACUTE ENCEPHALOPATHY/ SUCIDAL IDEATION/ URINARY RETENTION 97.9 100 18 104/73 96% RA IS: IV CEFEPIME Q24 LOVENOX SQ QD PROTONIX PO QD PLAVIX PO QD LIPITOR PO HS LEXAPRO PO QD : 4E MED SURG UNIT DCP: RETURN TO [facility] WHEN MEDICALLY CLEARED
--- NOTE | 2019-01-13 12:55 | NUR ---
Social Service Note Pending psychiatric consult. Patient has been a resident of [facility] since 08/2015. Patient's psychiatrist is Dr. Kerns in facility. Patient may require a referral to an IOP program such as [facility] once he returns to his facility. Will continue to monitor and assist as needed.
--- NOTE | 2019-01-13 13:00 | History and Physical Report ---
HISTORY OF PRESENT ILLNESS: The patient is a 68-year-old white male with a history of psychiatric problem, who has been transferred regarding the unusual including agitation, depression, and has been requested to be seen for the medical evaluation. At the time of evaluation, the patient complains of lack of control over urination. The patient denies any nausea, vomiting, diarrhea, or constipation. The [facility] a [facility]. No reported fever or chills. The evaluation in the emergency room, vital signs reported normal. Laboratories shows urinary tract infection and for the additional medical evaluation of neurogenic bladder and poor historian patient, decision was made to admit the patient. ALLERGIES: [place]. PAST MEDICAL HISTORY: Neurogenic bladder, psychiatric problem, hypertension, hyperlipidemia, and coronary artery disease. PAST SURGICAL HISTORY: Cardiac catheterization and stent placement. CURRENT HOSPITAL MEDICATIONS: Including, but not limited to aspirin, atorvastatin, Plavix, and . FAMILY HISTORY: Reviewed and noncontributory. PHYSICAL EXAMINATION: VITAL SIGNS: Blood pressure 100/80, temperature 98.2, pulse oximetry 98% on room air, respiratory rate 18, and pulse rate 100. HEAD AND NECK: Atraumatic and normocephalic. CHEST: Clear to auscultation. HEART: S1, S2. Regular rate and rhythm. ABDOMEN: Soft. No organomegaly. Positive for mild tenderness at the suprapubic area. NEUROLOGY: The patient is awake, alert, and oriented x3. LABORATORY DATA: Dated January 11 shows urine glucose negative, urine bilirubin negative, wbc 80, bacteria many. BUN 27, creatinine 1.2. BNP 240. TSH . A 3+ blood in the urine. ASSESSMENT: 1. SIRS. 2. UTI. 3. Neurogenic bladder /urinary incontinence. 4. Psychiatric disorder. 5. GI and DVT prophylaxis. PLAN OF CARE: I will continue the patient on empiric antibiotic cefepime. Send pending the urine cultures. Psychiatrist notified. The time of this dictation does not reflect the actual time of encounter. Wilber Adkisn M.D. DR: SHAE JOB#: [id number] CC:
--- NOTE | 2019-01-13 13:34 | CDS Physician Query ---
Clarification is required for compliance, coding accuracy, and to reflect severity of illness for this patient Dear Dr. Wilber Adkins Date: 01/13/2019 Responder/CDS Name: Yamilka Chirinos Clinical Documentation states:HNP: 68-year-old white male with a history of psychiatric problem, who has been transferred regarding the unusual including agitation, depression, and has been requested to be seen for the medical evaluation. At the time of evaluation, the patient complains of lack of control over urination...1. SIRS. 2. UTI. 3. Neurogenic bladder / urinary incontinence. UA: positive nitrite, 3+ leukocyte esterase Urine culture: Gram Negative Bacillus Please respond to the following question: Is there a causal relationship between the UTI and the jensen catheter ? PHYSICIAN RESPONSE: [] YES [] NO Present on Admission: [] Yes [] No [] Clinically Undetermined Physician signature Date Please also document in your Progress Notes and/or Discharge Summary and indicate if the condition was present on admission. JOLIE
--- NOTE | 2019-01-13 14:19 | Diagnostic Imaging Report ---
Indication: Acute renal failure, urinary tract infection Technique: Grayscale and duplex images of the kidneys, retroperitoneum, and bladder were obtained. Comparison: none Findings: Right kidney measures 9.5 cm in length. Left kidney measures 10 cm in length. Both kidneys demonstrate normal echogenicity. No hydronephrosis. Small cyst is seen in the right renal interpolar region. Normal inferior vena cava. Bladder is empty, contains a Jj catheter. Impression: Negative for hydronephrosis Jj catheter Incidental finding right renal cyst.
--- NOTE | 2019-01-13 15:35 | General Progress Note ---
Assessment/Plan Assessment/Plan: S: I am anxious O: seems in mild lower abd pain . Jj in place PHYSICAL EXAMINATION:HEAD AND NECK: Atraumatic and normocephalic. CHEST: Clear to auscultation.HEART: S1, S2. Regular rate and rhythm. ABDOMEN: Soft. No organomegaly. Positive for mild tenderness at the suprapubic area.NEUROLOGY: The patient is awake, alert, and oriented x3. LABORATORY DATA: Dated January 12 reviewed ASSESSMENT: 1. SIRS. 2. UTI- Gram negatibe- HCA 3. Neurogenic bladder/urinary incontinence. 4. Psychiatric disorder. 5. GI and DVT prophylaxis. PLAN OF CARE: I will continue the patient on empiric antibiotic cefepime. Send pending the urine cultures. Psychiatrist notified. ID is consulted Subjective Allergies: Coded Allergies: LITHIUM (Unverified Allergy, Unknown, 12/19/13) Objective Last 24 Hour Vital Signs Date Time Temp Pulse Resp B/P (MAP) Pulse Ox O2 Delivery O2 Flow Rate FiO2 01/13/19 12:00 98.8 79 18 130/81 (97) 96 01/13/19 09:00 Room Air 01/13/19 09:00 105/59 01/13/19 08:00 97.8 66 18 105/59 (74) 95 01/13/19 04:00 98.4 74 19 127/79 (95) 98 01/13/19 00:00 98.0 69 19 115/60 (78) 98 01/12/19 21:00 Room Air 01/12/19 20:00 97.9 71 19 106/54 (71) 95 01/12/19 15:48 97.7 66 18 130/72 (91) 94 Intake and Output 01/12/19 01/13/19 19:00 07:00 Intake Total 120 ml 500 ml Output Total 800 ml Balance 120 ml -300 ml Intake Oral 120 ml 500 ml Output Urine Total 800 ml # Bowel Movements 1 1 Height (Feet): 5 Height (Inches): 7.00 Weight (Pounds): 180 Wilber Adkins MD Jan 13, 2019 15:35
[2019-01-13] MEDS ORDERED: OLANZapine 2.5mg tab ORAL SCH (15:45)
[2019-01-13 16:00] VITALS: BP 108/76
--- NOTE | 2019-01-13 16:43 | Infectious Diseases Prog Note ---
Assessment/Plan Problems: (1) UTI (urinary tract infection) Assessment & Plan: with gram negative rods continue cefepime pending identification and sensitivity (2) Suicidal ideations Assessment & Plan: recommend psych eval and management (3) Urine retention Assessment & Plan: S/P jensen catheter, continue care as needed (4) Acute encephalopathy Assessment & Plan: due to the above, suspect metabolic (5) Major depression Assessment & Plan: continue psych meds, and psych eval Subjective Allergies: Coded Allergies: LITHIUM (Unverified Allergy, Unknown, 12/19/13) Objective Vital Signs Last 24 Hour Vital Signs Date Time Temp Pulse Resp B/P (MAP) Pulse Ox O2 Delivery O2 Flow Rate FiO2 01/13/19 16:00 97.8 87 18 108/76 (87) 95 01/13/19 12:00 98.8 79 18 130/81 (97) 96 01/13/19 09:00 Room Air 01/13/19 09:00 105/59 01/13/19 08:00 97.8 66 18 105/59 (74) 95 01/13/19 04:00 98.4 74 19 127/79 (95) 98 01/13/19 00:00 98.0 69 19 115/60 (78) 98 01/12/19 21:00 Room Air 01/12/19 20:00 97.9 71 19 106/54 (71) 95 Height (Feet): 5 Height (Inches): 7.00 Weight (Pounds): 180 Microbiology Date/Time Source Procedure Growth Status 01/11/19 17:50 Nasal Nares MRSA Culture - Final NO METHICILLIN RESISTANT STAPH AUREUS... Complete 01/11/19 14:26 Urine,Clean Catch Urine Culture - Preliminary Gram Negative Bacillus 1 Resulted 01/11/19 17:50 Rectum VRE Culture - Final NO VANCOMYCIN RESISTANT ENTEROCOCCUS ... Complete Current Medications Medications (Trade) Dose Ordered Sig/Brandee Route PRN Reason Start Time Stop Time Status Last Admin Dose Admin Acetaminophen (Tylenol) 650 mg Q4H PRN ORAL Mild Pain/Temp > 100.5 01/11/19 20:00 02/10/19 19:59 01/12/19 14:05 Acetaminophen/ Hydrocodone Bitart ([place] 5/325) 1 tab Q6H PRN ORAL pain 4-10 01/11/19 20:00 01/18/19 19:59 Aspirin (ASA) 81 mg DAILY ORAL 01/12/19 09:00 02/11/19 08:59 01/13/19 09:17 Atorvastatin Calcium (Lipitor) 20 mg BEDTIME ORAL 01/11/19 21:00 02/10/19 20:59 01/12/19 20:22 Cefepime HCl 1 gm/ Dextrose 55 ml @ 110 mls/hr Q24H IVPB 01/12/19 12:00 01/19/19 11:59 01/13/19 12:29 Clopidogrel Bisulfate (Plavix) 75 mg DAILY ORAL 01/12/19 09:00 02/11/19 08:59 01/13/19 09:17 Enoxaparin Sodium (Lovenox) 40 mg DAILY SUBQ 01/12/19 09:00 02/11/19 08:59 01/13/19 09:18 Escitalopram Oxalate (Lexapro) 10 mg DAILY ORAL 01/12/19 09:00 02/11/19 08:59 01/13/19 09:17 Lisinopril (Zestril) 5 mg DAILY ORAL 01/12/19 09:00 02/11/19 08:59 01/12/19 08:30 Lorazepam (Ativan) 2 mg Q6H PRN ORAL For Anxiety 01/13/19 15:42 01/20/19 15:41 01/13/19 15:54 Pantoprazole (Protonix) 40 mg DAILY ORAL 01/12/19 09:00 02/11/19 08:59 01/13/19 09:17 Quetiapine Fumarate (SEROquel) 25 mg BEDTIME ORAL 01/13/19 21:00 02/12/19 20:59 Brien Tipton M.D. Jan 13, 2019 16:43
[2019-01-13] MEDS ORDERED: DiphenhydrAMINE 50mg/ml Inj IM SCH (16:45)
[2019-01-13] MEDS ORDERED: LORazepam Inj 2mg/ml 1ml IM SCH (16:46)
--- NOTE | 2019-01-13 18:30 | NUR ---
NURSE NOTES: Patient stated that ativan is not working and expressed that he has thoughts of killing himself. Notified dr. Quezada. After discussing it with dr. Adkins, dr. Quezada referred pt to ade. Notified case operator. inweaver was made aware. High [employer] Football Coach RN got order from dr. Quezada to give benadryl 50 mg and ativan 2 mg IM.
[2019-01-13 20:00] VITALS: BP 116/63
--- NOTE | 2019-01-13 20:10 | NUR ---
HAND-OFF: Report given to CRISELDA Love.
--- NOTE | 2019-01-13 20:10 | NUR ---
NURSE NOTES: Received report from CRISELDA Rivera. Rounds done. Patient alert, awake. Side rails up x2, jensen catheter patent, clear yellow urine. Saline lock intact, will continue to monitor.
[2019-01-13] MEDS: Atorvastatin 20mg tab ORAL SCH (21:01)
[2019-01-14] VITALS: BP 102/64
--- NOTE | 2019-01-14 00:30 | Consultation ---
DATE OF CONSULTATION: 01/13/2019 INFECTIOUS DISEASE CONSULTATION CONSULTING PHYSICIAN: Brien Tipton M.D. REFERRING PHYSICIAN: Wilber Adkins M.D. REASON FOR CONSULTATION: Urinary tract infection. Recommendation for antibiotics treatment. HISTORY OF PRESENT ILLNESS: The patient is a 68-year-old male with past medical history significant for psych disorder, neurogenic bladder, hypertension, hyperlipidemia, and coronary artery disease was [facility] from his [facility] due to unusual behavior including agitation and depression. The patient has been requesting to be evaluated in the hospital. The patient was known to have urinary incontinence and his workup revealed evidence of urinary tract infection in the emergency room. The patient had mild dysuria, but no hematuria. No back pain. No nausea, vomiting, or diarrhea. No fever or chills. The patient was started on cefepime empirically by the admitting physician and he was admitted to the medical-surgical floor for further evaluation and management. An Infectious Disease consultation was requested for antibiotics guidance. As of note, the patient is a poor historian and could not provide good history. Most of the details were obtained from the medical record. REVIEW OF SYSTEMS: Unable to obtain. The patient is a poor historian. PAST MEDICAL HISTORY: Significant for neurogenic bladder, psych disorder, hypertension, hyperlipidemia, and coronary artery disease. PAST SURGICAL HISTORY: He had a cardiac catheterization and stent placement. MEDICATIONS: Currently, he is on cefepime. For the rest of his medications, please refer to MAR. ALLERGIES: He is allergic to lithium. SOCIAL HISTORY: The patient lives in [place]. No recent drugs, tobacco, or alcohol. FAMILY HISTORY: Not contributory. PHYSICAL EXAMINATION: VITAL SIGNS: Temperature 97.8, pulse 87, respirations 18, blood pressure 108/76, and saturation 95% on room air. GENERAL: An elderly male, lying in bed. Awake and alert, not in acute distress. HEENT: Normocephalic and atraumatic. Pupils reactive to light equally. Moist oral mucosa. No exudate. NECK: Supple. No lymphadenopathy. CARDIOVASCULAR: Regular rate and rhythm. No murmur or gallop. LUNGS: Clear bilaterally to auscultation. No wheezing or rhonchi. Normal breathing efforts. ABDOMEN: Soft, nontender, and nondistended. No hepatosplenomegaly. No ascites. Mild tenderness in the suprapubic area. GENITOURINARY: Normal genitalia. EXTREMITY: No edema or cyanosis. No clubbing. NEURO: The patient is awake, alert, and follow commands. LABORATORY DATA: Laboratories showed white count of 6.6, hemoglobin of 14.1, and platelet count of 260,000. BUN of 25 and creatinine of 1.2. Urinalysis showed +3 leukocyte esterase, wbc's 60 to 80, and many bacteria. MICROBIOLOGY: Urine culture is growing more than 100,000 colony gram-negative bacilli. IMAGING: Renal ultrasound was negative for hydronephrosis and incidental finding of the right renal cyst. ASSESSMENT AND RECOMMENDATION: 1. Urinary tract infection with culture growing more than 100,000 colony, most likely . Continue with cefepime empiric coverage pending final urine culture. 2. SIRS due to the above. Continue hydration and antibiotics coverage. 3. Neurogenic bladder with incontinence. He will need Urology evaluation and follow up in the future to prevent recurrent infection. 4. Psych disorder with exacerbation. Recommend psych consult and management as needed. Thank you for the consult. ID will continue to follow. Brien Tipton M.D. DR: CHANCE JOB#: [id number] CC:
[2019-01-14 04:00] VITALS: BP 132/79
--- NOTE | 2019-01-14 07:29 | NUR ---
HAND-OFF: Report given to CRISELDA Rivera.
--- NOTE | 2019-01-14 07:37 | NUR ---
NURSE NOTES: Received pt in bed, AAO x 3. Room air. No c/o pain/distress. IV on L AC 20g intact and patent with saline lock. Side rails x 2. Bed in the lowest, locked, and alarm on. Call light within reach. Will continue to monitor
[2019-01-14 08:00] VITALS: BP 125/75
[2019-01-14] MEDS: Aspirin Baby 81mg ORAL SCH (09:00)
[2019-01-14] MEDS: LORazepam 1mg tab ORAL PRN ×2 (09:01→16:02)
[2019-01-14] MEDS: Lisinopril 2.5mg tab ORAL SCH (09:01)
[2019-01-14] MEDS: Enoxaparin 40mg Inj SUBQ SCH (09:06)
--- NOTE | 2019-01-14 11:12 | NUR ---
CASE MANAGEMENT: REVIEW 01/14/19 SI: UTI / SUCIDAL IDEATION/ ACUTE ENCEPH/ 98.0 86 18 125/75 92% RA IS: IV CEFEPIME Q24HR LOVENOX SQ QD PROTONIX PO QD LISINOPRIL PO QD PLAVIX PO QD LIPITOR PO HS LEXAPRO PO QD SEROQUEL PO HS ATIVAN PO Q6/PRN : 4E MED SURG UNIT DCP: RETURN TO [facility] WHEN MEDICALLY CLEARED PLAN: DISCHARGE TO [facility]
[2019-01-14 12:00] VITALS: BP 104/65
[2019-01-14] MEDS: Cefepime HCl 1 GM in D5W 55 ML IVPB SCH (12:29)
--- NOTE | 2019-01-14 13:57 | NUR ---
Social Service Note SW spoke with [facility] [phone] and patient requires to high level of care for facility, (indwelling cath and non-ambulatory). GERMAIN informed CM and Dr. Adkins. Patient referred to [facility], (p) [phone] (f). Primary nurse aware.
--- NOTE | 2019-01-14 15:28 | Psych Consult Progress Note ---
Psychiatry Progress Note Psychiatry Progress Note Medications Current Medications Medications (Trade) Dose Ordered Sig/Brandee Route PRN Reason Start Time Stop Time Status Last Admin Dose Admin Acetaminophen (Tylenol) 650 mg Q4H PRN ORAL Mild Pain/Temp > 100.5 01/11/19 20:00 02/10/19 19:59 01/14/19 13:21 Acetaminophen/ Hydrocodone Bitart ([place] 5/325) 1 tab Q6H PRN ORAL pain 4-10 01/11/19 20:00 01/18/19 19:59 Aspirin (ASA) 81 mg DAILY ORAL 01/12/19 09:00 02/11/19 08:59 01/14/19 09:00 Atorvastatin Calcium (Lipitor) 20 mg BEDTIME ORAL 01/11/19 21:00 02/10/19 20:59 01/13/19 21:01 Cefepime HCl 1 gm/ Dextrose 55 ml @ 110 mls/hr Q24H IVPB 01/12/19 12:00 01/19/19 11:59 01/14/19 12:29 Clopidogrel Bisulfate (Plavix) 75 mg DAILY ORAL 01/12/19 09:00 02/11/19 08:59 01/14/19 09:00 Enoxaparin Sodium (Lovenox) 40 mg DAILY SUBQ 01/12/19 09:00 02/11/19 08:59 01/14/19 09:06 Escitalopram Oxalate (Lexapro) 10 mg DAILY ORAL 01/12/19 09:00 02/11/19 08:59 01/14/19 09:01 Lisinopril (Zestril) 5 mg DAILY ORAL 01/12/19 09:00 02/11/19 08:59 01/14/19 09:01 Lorazepam (Ativan) 2 mg Q6H PRN ORAL For Anxiety 01/13/19 15:42 01/20/19 15:41 01/14/19 09:01 Pantoprazole (Protonix) 40 mg DAILY ORAL 01/12/19 09:00 02/11/19 08:59 01/14/19 09:01 Quetiapine Fumarate (SEROquel) 25 mg BEDTIME ORAL 01/13/19 21:00 02/12/19 20:59 01/13/19 21:01 Neurological/Psychiatric: Reports: anxiety, depressed Allergies: Coded Allergies: LITHIUM (Unverified Allergy, Unknown, 12/19/13) Objective Data Height (Feet): 5 Height (Inches): 7.00 Weight (Pounds): 180 General Appearance: WD/WN, no apparent distress, alert Appearance: well groomed Behavior Mannerisms: good eye contact Mental Status Exam - Affect: constricted Mental Status Exam - Mood: depressed, anxious Speech: clear Mental Status Exam - Thought P: logical Mental Status Exam - Suicidal: present Assessment/Plan [place] I: mdd,anxiety do Status: stable Assessment/Plan: The pt is not at imminent DTO/DTO The pt will be continues on current meds the pt may be returned to his facility Gloria Quezada MD Jan 14, 2019 15:27
--- NOTE | 2019-01-14 15:34 | NUR ---
Social Service Note SW confirmed referral received at [facility] [phone]. Patient willing to dc to psych voluntary however facility may send a clinician for 5150 evaluation. Patient continues to express depressed feelings and desire to . Patient unable to formulate a plan for self harm and is requesting psychiatric intervention. Will continue to monitor.
[2019-01-14 16:00] VITALS: BP 107/66
--- NOTE | 2019-01-14 16:10 | Infectious Diseases Prog Note ---
Assessment/Plan Problems: (1) UTI (urinary tract infection) Assessment & Plan: with PSEUDOMONAS AERUGINOSA AND KLEBSIELLA OXYTOCA , continue cefepime for two weeks total . EOT 01/26/19 (2) Suicidal ideations Assessment & Plan: recommend psych eval and management (3) Urine retention Assessment & Plan: S/P jensen catheter, continue care as needed (4) Acute encephalopathy Assessment & Plan: due to the above, suspect metabolic (5) Major depression Assessment & Plan: continue psych meds, and psych eval Subjective Constitutional: Reports: no symptoms HEENT: Reports: no symptoms Respiratory: Reports: no symptoms Breasts: Reports: no symptoms Cardiovascular: Reports: no symptoms Gastrointestinal/Abdominal: Reports: no symptoms Genitourinary: Reports: no symptoms Neurologic: Reports: no symptoms Psychiatric: Reports: no symptoms Skin: Reports: no symptoms Endocrine: Reports: no symptoms Hematologic: Reports: no symptoms Musculoskeletal: Reports: no symptoms Allergies: Coded Allergies: LITHIUM (Unverified Allergy, Unknown, 12/19/13) Objective Vital Signs Last 24 Hour Vital Signs Date Time Temp Pulse Resp B/P (MAP) Pulse Ox O2 Delivery O2 Flow Rate FiO2 01/14/19 12:00 98.2 86 18 104/65 (78) 93 01/14/19 09:01 125/75 01/14/19 09:00 Room Air 01/14/19 08:00 98.0 86 18 125/75 (92) 92 01/14/19 04:00 97.8 84 18 132/79 (96) 96 01/14/19 00:00 97.9 71 18 102/64 (77) 94 01/13/19 21:00 Room Air 01/13/19 20:00 97.7 67 20 116/63 (80) 93 Height (Feet): 5 Height (Inches): 7.00 Weight (Pounds): 180 General Appearance: WD/WN, no acute distress HEENT: normocephalic, atraumatic, anicteric, mucous membranes moist, PERRL Respiratory/Chest: chest wall non-tender, lungs clear, normal breath sounds, no respiratory distress, no accessory muscle use Cardiovascular: normal peripheral pulses, normal rate, regular rhythm, no gallop/murmur, no JVD Abdomen: normal bowel sounds, soft, non tender, no organomegaly, non distended , no mass, no scars Genitourinary: normal external genitalia Extremities: no cyanosis, no clubbing Skin: no rash, no lesions, no ulcers Neurologic/Psychiatric: imaging scheduler II-XII grossly normal, no motor/sensory deficits, alert, responsive Lymphatic: no neck adenopathy, no groin adenopathy Musculoskeletal: normal muscle bulk, no effusion Microbiology Date/Time Source Procedure Growth Status 01/11/19 17:50 Nasal Nares MRSA Culture - Final NO METHICILLIN RESISTANT STAPH AUREUS... Complete 01/11/19 17:50 Rectum VRE Culture - Final NO VANCOMYCIN RESISTANT ENTEROCOCCUS ... Complete Current Medications Medications (Trade) Dose Ordered Sig/Brandee Route PRN Reason Start Time Stop Time Status Last Admin Dose Admin Acetaminophen (Tylenol) 650 mg Q4H PRN ORAL Mild Pain/Temp > 100.5 01/11/19 20:00 02/10/19 19:59 01/14/19 13:21 Acetaminophen/ Hydrocodone Bitart ([place] 5/325) 1 tab Q6H PRN ORAL pain 4-10 01/11/19 20:00 01/18/19 19:59 Aspirin (ASA) 81 mg DAILY ORAL 01/12/19 09:00 02/11/19 08:59 01/14/19 09:00 Atorvastatin Calcium (Lipitor) 20 mg BEDTIME ORAL 01/11/19 21:00 02/10/19 20:59 01/13/19 21:01 Cefepime HCl 1 gm/ Dextrose 55 ml @ 110 mls/hr Q24H IVPB 01/12/19 12:00 01/19/19 11:59 01/14/19 12:29 Clopidogrel Bisulfate (Plavix) 75 mg DAILY ORAL 01/12/19 09:00 02/11/19 08:59 01/14/19 09:00 Enoxaparin Sodium (Lovenox) 40 mg DAILY SUBQ 01/12/19 09:00 02/11/19 08:59 01/14/19 09:06 Escitalopram Oxalate (Lexapro) 10 mg DAILY ORAL 01/12/19 09:00 02/11/19 08:59 01/14/19 09:01 Lisinopril (Zestril) 5 mg DAILY ORAL 01/12/19 09:00 02/11/19 08:59 01/14/19 09:01 Lorazepam (Ativan) 2 mg Q6H PRN ORAL For Anxiety 01/13/19 15:42 01/20/19 15:41 01/14/19 16:02 Pantoprazole (Protonix) 40 mg DAILY ORAL 01/12/19 09:00 02/11/19 08:59 01/14/19 09:01 Quetiapine Fumarate (SEROquel) 25 mg BEDTIME ORAL 01/13/19 21:00 02/12/19 20:59 01/13/19 21:01 Brien Tipton M.D. Jan 14, 2019 16:10
--- NOTE | 2019-01-14 19:30 | NUR ---
HAND-OFF: Report given to CRISELDA Blancas.
[2019-01-14 20:00] VITALS: BP 97/61
--- NOTE | 2019-01-14 20:24 | NUR ---
NURSE NOTES: RECEIVED PT FROM FROM CRISELDA AARON. PT IS AWAKE, AAOX3, ON ROOM AIR, NO ACUTE DISTRESS NOTED. JONES NOTED INTACT AND PATENT, DRAINING WELL, YELLOW URINE. JONES ANCHOR IS IN PLACE. IV ON LEFT AC 20G IS INTACT AND PATENT. BED IS LOCKED AND LOW, BED ALARMS ACTIVE, SIDE RAILS UP X2, AND CALL LIGHT IS WITHIN REACH. WILL CONTINUE TO MONITOR.
[2019-01-14] MEDS: Atorvastatin 20mg tab ORAL SCH (21:13)
--- NOTE | 2019-01-14 22:05 | General Progress Note ---
Assessment/Plan Status: stable Assessment/Plan: S: I am anxious O: comfortable, Jj in place PHYSICAL EXAMINATION:HEAD AND NECK: Atraumatic and normocephalic. CHEST: Clear to auscultation.HEART: S1, S2. Regular rate and rhythm. ABDOMEN: Soft. No organomegaly. Positive for mild tenderness at the suprapubic area.NEUROLOGY: The patient is awake, alert, and oriented x3. LABORATORY DATA: Dated January 12 reviewed ASSESSMENT: 1. SIRS. 2. UTI- Gram negatibe- HCA 3. Neurogenic bladder/urinary incontinence. 4. Psychiatric disorder. 5. GI and DVT prophylaxis. PLAN OF CARE: I will continue the patient on empiric antibiotic cefepime. Send pending the urine cultures. ok to switch to PO abx, at discharge. Subjective Allergies: Coded Allergies: LITHIUM (Unverified Allergy, Unknown, 12/19/13) Objective Last 24 Hour Vital Signs Date Time Temp Pulse Resp B/P (MAP) Pulse Ox O2 Delivery O2 Flow Rate FiO2 01/14/19 16:00 97.0 88 18 107/66 (80) 94 01/14/19 12:00 98.2 86 18 104/65 (78) 93 01/14/19 09:01 125/75 01/14/19 09:00 Room Air 01/14/19 08:00 98.0 86 18 125/75 (92) 92 01/14/19 04:00 97.8 84 18 132/79 (96) 96 01/14/19 00:00 97.9 71 18 102/64 (77) 94 Intake and Output 01/13/19 01/14/19 19:00 07:00 Intake Total 415 ml 120 ml Output Total 700 ml Balance 415 ml -580 ml Intake Oral 360 ml 120 ml IV Total 55 ml Output Urine Total 700 ml # Voids 1 # Bowel Movements 1 1 Height (Feet): 5 Height (Inches): 7.00 Weight (Pounds): 180 Wilber Adkins MD Jan 14, 2019 22:05
[2019-01-15] VITALS: BP 101/72
--- NOTE | 2019-01-15 02:32 | Progress Note ---
DATE: 01/14/2019 SUBJECTIVE: The patient was in bed, no acute distress. Watching TV in a better mood today. The patient is not having suicidal or homicidal ideation. The patient is calm, cooperative, and is not suicidal. The patient is awaiting placement. MENTAL STATUS EXAMINATION: The patient is alert and oriented times self, place, and situation. Mood is depressed. Affect is constricted, congruent with mood. Thought process is linear and goal oriented. Thought content, no suicidal ideation. No delusions. Insight and judgment is fair. ASSESSMENT: [place] I: Major depressive disorder, anxiety disorder. PLAN: 1. Continue the current psychotropic medication. 2. The patient is not an imminent danger to self or others. 3. Provide the patient with reality orientation and supportive therapy. Gloria Quezada M.D. DR: LUIGI JOB#: [id number] CC: JOLIE
[2019-01-15 04:00] VITALS: BP 107/72
[2019-01-15] MEDS: LORazepam 1mg tab ORAL PRN ×2 (06:26→12:24)
--- NOTE | 2019-01-15 07:46 | NUR ---
HAND-OFF: Report given to CRISELDA Coyle. Endorsed plan of care.
[2019-01-15 08:00] VITALS: BP 106/76
[2019-01-15] MEDS: Aspirin Baby 81mg ORAL SCH (08:59)
[2019-01-15] MEDS: Lisinopril 2.5mg tab ORAL SCH (09:00)
[2019-01-15] MEDS: Enoxaparin 40mg Inj SUBQ SCH (09:14)
--- NOTE | 2019-01-15 09:42 | NUR ---
Social Service Note Spoke with Nikolay regarding psych transfer, , clinicals under review. Possible bed availability. Will continue to follow up.
--- NOTE | 2019-01-15 10:46 | General Progress Note ---
Assessment/Plan Status: stable Assessment/Plan: S: I am anxious O: comfortable, Jj in place PHYSICAL EXAMINATION:HEAD AND NECK: Atraumatic and normocephalic. CHEST: Clear to auscultation.HEART: S1, S2. Regular rate and rhythm. ABDOMEN: Soft. No organomegaly. Positive for mild tenderness at the suprapubic area.NEUROLOGY: The patient is awake, alert, and oriented x3. LABORATORY DATA: Dated January 12 reviewed ASSESSMENT: 1. SIRS. 2. UTI- Gram negatibe- HCA 3. Neurogenic bladder/urinary incontinence. 4. Psychiatric disorder. 5. GI and DVT prophylaxis. PLAN OF CARE: Will continue antibiotic per ID. Medically stable to followup as op . Subjective Allergies: Coded Allergies: LITHIUM (Unverified Allergy, Unknown, 12/19/13) Objective Last 24 Hour Vital Signs Date Time Temp Pulse Resp B/P (MAP) Pulse Ox O2 Delivery O2 Flow Rate FiO2 01/15/19 09:00 106/76 01/15/19 09:00 Room Air 01/15/19 08:00 98.1 85 14 106/76 (86) 95 01/15/19 04:00 98.1 77 17 107/72 (84) 97 01/15/19 00:00 97.6 77 17 101/72 (82) 100 01/14/19 21:00 Room Air 01/14/19 20:00 97.8 85 18 97/61 (73) 94 01/14/19 16:00 97.0 88 18 107/66 (80) 94 01/14/19 12:00 98.2 86 18 104/65 (78) 93 Intake and Output 01/14/19 01/15/19 19:00 07:00 Intake Total 1200 ml Output Total 600 ml 600 ml Balance 600 ml -600 ml Intake Oral 1200 ml Output Urine Total 600 ml 600 ml # Bowel Movements 1 1 Height (Feet): 5 Height (Inches): 7.00 Weight (Pounds): 166 Wilber Adkins MD Jan 15, 2019 10:46
--- NOTE | 2019-01-15 11:30 | NUR ---
CASE MANAGEMENT: REVIEW 01/15/19 SI: UTI / SUCIDAL IDEATION/ ACUTE ENCEPH/ 98.1 85 14 106/76 95% RA IS: IV CEFEPIME Q24HR LOVENOX SQ QD PROTONIX PO QD LISINOPRIL PO QD PLAVIX PO QD LIPITOR PO HS LEXAPRO PO QD SEROQUEL PO HS ATIVAN PO Q6/PRN ASA PO QD : 4E MED SURG UNIT DCP: RETURN TO [facility] WHEN MEDICALLY CLEARED PLAN: DISCHARGE TO PS FACILITY WHEN BED AVAILABLE
--- NOTE | 2019-01-15 11:41 | NUR ---
Social Service Note Patient accepted at [facility]. Clinician will assess patient for hold. Once hold is in place patient will transfer. Primary nurse, ELONEL and Dr. Adkins notified.
[2019-01-15] MEDS: Cefepime HCl 1 GM in D5W 55 ML IVPB SCH (12:25)
--- NOTE | 2019-01-15 13:57 | NUR ---
NURSE NOTES: SPOKE TO REP MARIA D FROM [facility]. PT WILL BE PLACED ON HOLD AND TRANSFERRED TO [facility], NURSE TO NURSE REPORT . PT WILL BE ACCEPTED UNDER DR MEDINA. RN MADE LEONEL RACHEL AWARE.
[2019-01-15] MEDS ORDERED: PROTONIX40 MG ORAL (15:31)
[2019-01-15] MEDS ORDERED: LIPITOR20 MG ORAL (15:32)
[2019-01-15] MEDS ORDERED: CLOPIDOGREL75 MG ORAL (15:33)
[2019-01-15] MEDS ORDERED: LOVENOX10 M4 SUBQ (15:33)
[2019-01-15] MEDS ORDERED: LISINOPRIL5 MG ORAL (15:34)
[2019-01-15] MEDS ORDERED: LEXAPRO10 MG ORAL (15:34)
[2019-01-15] MEDS ORDERED: QUETIAPINE FUMA25 MG ORAL (15:35)
[2019-01-15] MEDS ORDERED: ACETAMINOPHEN500 M5 ORAL (15:36)
[2019-01-15] MEDS ORDERED: LORAZEPAM2 MG ORAL (15:37)
[2019-01-15] MEDS ORDERED: NORCO 5-325 TA1 EACH ORAL (15:37)
[2019-01-15] MEDS ORDERED: CIPROFLOXACIN750 MG ORAL (15:38)
--- NOTE | 2019-01-15 15:47 | NUR ---
DISCHARGED PLANNED: NURSE SPOKE TO REP MARIA D FROM [facility]. PT WILL BE TRANSFERRED TO [facility], T: [phone] FOR NURSE TO NURSE REPORT ACCEPTED UNDER DR. MEDINA #ROOM: [id number] CALLED FOR A 5:30PM PICKUP TIME
[2019-01-15 16:00] VITALS: BP 105/65
--- NOTE | 2019-01-15 16:11 | Infectious Diseases Prog Note ---
Assessment/Plan Problems: (1) UTI (urinary tract infection) Assessment & Plan: with PSEUDOMONAS AERUGINOSA AND KLEBSIELLA OXYTOCA , continue cefepime for two weeks total , may switch to oral ciprofloxacin . EOT 01/26/19 (2) Suicidal ideations Assessment & Plan: recommend psych eval and management (3) Urine retention Assessment & Plan: S/P jensen catheter, continue care as needed (4) Acute encephalopathy Assessment & Plan: due to the above, suspect metabolic (5) Major depression Assessment & Plan: continue psych meds, and psych eval Subjective Constitutional: Reports: no symptoms HEENT: Reports: no symptoms Respiratory: Reports: no symptoms Breasts: Reports: no symptoms Cardiovascular: Reports: no symptoms Gastrointestinal/Abdominal: Reports: no symptoms Genitourinary: Reports: no symptoms Neurologic: Reports: no symptoms Psychiatric: Reports: no symptoms Skin: Reports: no symptoms Endocrine: Reports: no symptoms Hematologic: Reports: no symptoms Musculoskeletal: Reports: no symptoms Allergies: Coded Allergies: LITHIUM (Unverified Allergy, Unknown, 12/19/13) Objective Vital Signs Last 24 Hour Vital Signs Date Time Temp Pulse Resp B/P (MAP) Pulse Ox O2 Delivery O2 Flow Rate FiO2 01/15/19 09:00 106/76 01/15/19 09:00 Room Air 01/15/19 08:00 98.1 85 14 106/76 (86) 95 01/15/19 04:00 98.1 77 17 107/72 (84) 97 01/15/19 00:00 97.6 77 17 101/72 (82) 100 01/14/19 21:00 Room Air 01/14/19 20:00 97.8 85 18 97/61 (73) 94 Height (Feet): 5 Height (Inches): 7.00 Weight (Pounds): 166 General Appearance: WD/WN, no acute distress HEENT: normocephalic, atraumatic, anicteric, mucous membranes moist, PERRL Respiratory/Chest: chest wall non-tender, lungs clear, normal breath sounds, no respiratory distress, no accessory muscle use Cardiovascular: normal rate, regular rhythm, no gallop/murmur, no JVD Abdomen: normal bowel sounds, soft, non tender, no organomegaly, non distended , no mass, no scars Extremities: no cyanosis, no clubbing Skin: no rash, no lesions, no ulcers Neurologic/Psychiatric: alert, responsive Lymphatic: no neck adenopathy, no groin adenopathy Musculoskeletal: normal muscle bulk, no effusion Current Medications Medications (Trade) Dose Ordered Sig/Brandee Route PRN Reason Start Time Stop Time Status Last Admin Dose Admin Acetaminophen (Tylenol) 650 mg Q4H PRN ORAL Mild Pain/Temp > 100.5 01/11/19 20:00 02/10/19 19:59 01/14/19 13:21 Acetaminophen/ Hydrocodone Bitart ([place] 5/325) 1 tab Q6H PRN ORAL pain 4-10 01/11/19 20:00 01/18/19 19:59 Aspirin (ASA) 81 mg DAILY ORAL 01/12/19 09:00 02/11/19 08:59 01/15/19 08:59 Atorvastatin Calcium (Lipitor) 20 mg BEDTIME ORAL 01/11/19 21:00 02/10/19 20:59 01/14/19 21:13 Cefepime HCl 1 gm/ Dextrose 55 ml @ 110 mls/hr Q24H IVPB 01/12/19 12:00 01/19/19 11:59 01/15/19 12:25 Clopidogrel Bisulfate (Plavix) 75 mg DAILY ORAL 01/12/19 09:00 02/11/19 08:59 01/15/19 08:59 Enoxaparin Sodium (Lovenox) 40 mg DAILY SUBQ 01/12/19 09:00 02/11/19 08:59 01/15/19 09:14 Escitalopram Oxalate (Lexapro) 10 mg DAILY ORAL 01/12/19 09:00 02/11/19 08:59 01/15/19 08:59 Lisinopril (Zestril) 5 mg DAILY ORAL 01/12/19 09:00 02/11/19 08:59 01/14/19 09:01 Lorazepam (Ativan) 2 mg Q6H PRN ORAL For Anxiety 01/13/19 15:42 01/20/19 15:41 01/15/19 12:24 Pantoprazole (Protonix) 40 mg DAILY ORAL 01/12/19 09:00 02/11/19 08:59 01/15/19 08:59 Quetiapine Fumarate (SEROquel) 25 mg BEDTIME ORAL 01/13/19 21:00 02/12/19 20:59 01/14/19 21:13 Brien Tipton M.D. Jan 15, 2019 16:11
--- NOTE | 2019-01-15 16:16 | NUR ---
DISCHARGE NURSE NOTES: RN SPOKE TO REZA AND MELINA HOPE AND MADE AWARE OF DISCHARGE TO [facility]. BELONGINGS CHECKED AT BEDSIDE. ONLY SHIRT AND PANTS LISTED. RN SPOKE TO MELINA WHO STATES HIS WALLET IS MISSING. RN DID NOT NOTE WALLET LISTED IN BELONGINGS LIST AND MELINA MADE AWARE. REPORT GIVEN TO CRISELDA DENT AT [facility].
--- NOTE | 2019-01-15 16:25 | NUR ---
NURSE NOTES: BROTHER MELINA HOPE
--- NOTE | 2019-01-15 16:44 | NUR ---
NURSE NOTES: RN LEFT MESSAGE WITH FAWAD AT [facility] AND GIVEN MELINA HOPE'S NUMBER. PT'S BROTHER REQUESTS FOR HELP WITH FILING POWER OF PHARMACY SERVICES DIRECTOR BUT MISSING WALLET AND ID CARDS.
--- NOTE | 2019-01-15 19:21 | NUR ---
DISCHARGE NURSE NOTES: IV ACCESS DISCONTINUED. REPORT GIVEN TO [facility]. PT WAS DISCHARGED IN STABLE CONDITION.
--- NOTE | 2019-01-16 10:12 | Discharge Summary ---
Discharge Summary Discharge Summary _ DATE OF ADMISSION: 01/11/2019 DATE OF DISCHARGE: 01/15/2019 DISCHARGED BY:Dr. Adkins REASON FOR ADMISSION: 68 years old male with past medical history of hypertension, schizophrenia, depression, presented from assisted living , stating that he was suicidal and depressed. Patient had no plan. He felt very anxious. Patient reported being compliant with his medication , however stated that his medication were not helping him. He denied hearing voices. He denied alcohol or drug abuse. Upon evaluation vital signs were stable. Laboratory work-up revealed no leukocytosis , stable hemoglobin and hematocrit. Stable electrolytes. BUN 27, creatinine 1.3. Glucose 98. Salicylates Tylenol and alcohol levels were all negative. Depakote level therapeutic. Urinalysis revealed +3 protein, +1 ketones, +3 leukocyte esterase, pyuria and many bacteria. Urine toxicology screen was positive for benzodiazepine. Patient subsequently admitted for further management. CONSULTANTS: ID specialist Dr. [place] psychiatrist [facility] COURSE: Patient admitted to medical surgical floor. Patient started on empiric antibiotics. ID specialist followed Urine culture revealed growth of Klebsiella oxytoca and Pseudomonas aeruginosa. Antibiotic regimen was optimized as per ID specialist recommendation ID specialist recommended continue total treatment for 2 weeks. Patient switched to oral antibiotic upon discharge to complete the treatment. End of treatment 01/26/2019. DVT and GI prophylaxis provided. Psychiatrist followed. Psychiatrist diagnosed patient with major depressive disorder and anxiety disorder . Per psychiatrist assessment patient was not at imminent danger to others or to self. Reality orientation and supportive therapy provided. Patient was medically optimized and cleared for discharge to psychiatric facility for further management. FINAL DIAGNOSES: Acute encephalopathy UTI with Klebsiella Oxytoca and Pseudomonas Aeruginosa Neurogenic bladder Urinary retention Major depressive disorder Anxiety disorder DISCHARGE MEDICATIONS: See Medication Reconciliation list. DISCHARGE INSTRUCTIONS: Patient was transferred to [facility] for further management. Follow up with medical doctor at the facility. I have been assigned to dictate discharge summary for this account. I was not involved in the patient's management. Shelbi Angeles NP Jan 16, 2019 10:12
== END 2019-01-15 18:58 | DRG 698 ==
LOC: EDBD 13:35 → EMR 14:30 → 4E 15:05 → EDBEDREQ 17:37
DX: T83.511A Infection and inflammatory reaction due to indwelling urethral catheter, initial encounter (principal); G93.41 Metabolic encephalopathy; R45.851 Suicidal ideations; Y84.6 Urinary catheterization as the cause of abnormal reaction of the patient, or of later complication, without mention of misadventure at the time of the procedure; N31.9 Neuromuscular dysfunction of bladder, unspecified; Z88.8 Allergy status to other drugs, medicaments and biological substances; I10 Essential (primary) hypertension; E78.5 Hyperlipidemia, unspecified; I25.10 Atherosclerotic heart disease of native coronary artery without angina pectoris; Z95.5 Presence of coronary angioplasty implant and graft; R33.9 Retention of urine, unspecified; F32.9 Major depressive disorder, single episode, unspecified; F41.9 Anxiety disorder, unspecified; B96.1 Klebsiella pneumoniae [K. pneumoniae] as the cause of diseases classified elsewhere; B96.5 Pseudomonas (aeruginosa) (mallei) (pseudomallei) as the cause of diseases classified elsewhere
CPT/HCPCS: 36415; 76770; 80048; 80053; 80061; 80164; 80307; 81003; 83036; 83880; 84443; 84484; 85025; 87081; 87086; 87181; 96361; 96365; 99285; G0480; J7030

== ENCOUNTER 2019-08-09 22:20 | Emergency (ER) | payer MEDICARE ==
[~2019-08-09] VITALS: Ht 165.1 cm; Wt 79.4 kg
[~2019-08-09 22:20] MED LIST changes: +ACETAMINOPHEN500 M5 ORAL; +CIPROFLOXACIN750 MG ORAL; +CLOPIDOGREL75 MG ORAL; +LIPITOR20 MG ORAL; +LISINOPRIL5 MG ORAL; +LORAZEPAM2 MG ORAL; +LOVENOX10 M4 SUBQ; +NORCO 5-325 TA1 EACH ORAL; +PROTONIX40 MG ORAL; +QUETIAPINE FUMA25 MG ORAL
--- NOTE | 2019-08-09 22:30 | NUR ---
ED Nurse Note: Patient walked in c/o leaking in jensen bag. Denies pain, burning sensation.
[2019-08-09 22:35] VITALS: BP 129/79
--- NOTE | 2019-08-09 22:51 | NUR ---
ED Nurse Note: Pt cleared by health care Provider for discharge. DC instructions/prescription was given and explained to pt and verbalized understanding of teachings. All medical deviecs such as ID band removed. Pt is AAO x4, ambulatory and left with all personal belongings.
[2019-08-09 22:52] VITALS: BP 129/79
--- NOTE | 2019-08-09 23:17 | Emergency Room Report ---
History of Present Illness General Chief Complaint: Male Urogenital Problems Source: Patient Present Illness HPI 68-year-old male presents for Jensen catheter eval. States that the Jensen bag is leaking starting tonight. Denies any pain. Denies any dysuria. Denies any fevers or chills. No other aggravating relieving factors. Denies any other associated symptoms Allergies: Coded Allergies: LITHIUM (Unverified Allergy, Unknown, 12/19/13) COVID-19 Screening Contact w/high risk pt: No Recent Travel to affected area: No Experienced COVID-19 symptoms?: No COVID-19 Testing performed BLADE ALIGNER: No Patient History Past Medical History: HTN Past Surgical History: none Pertinent Family History: none Social History: Denies: smoking, alcohol use, drug use Immunizations: UTD Reviewed Nursing Documentation: PMH: Agreed; PSxH: Agreed Nursing Documentation-PMH Hx Cardiac Problems: No - schizophrenia, depression Hx Hypertension: Yes Hx Asthma: No Hx COPD: No Hx Cancer: No Hx Gastrointestinal Problems: No - weak bladder Hx Neurological Problems: No Review of Systems All Other Systems: negative except mentioned in HPI Physical Exam Vital Signs Date Time Temp Pulse Resp B/P (MAP) Pulse Ox O2 Delivery O2 Flow Rate FiO2 08/09/19 22:27 98.6 99 16 129/79 (96) 95 Room Air Sp02 EP Interpretation: reviewed, normal General Appearance: no apparent distress, alert, GCS 15, non-toxic Head: normocephalic, atraumatic Eyes: bilateral eye normal inspection, bilateral eye PERRL ENT: hearing grossly normal, normal pharynx, no angioedema, normal voice Neck: full range of motion, supple/symm/no masses Respiratory: chest non-tender, lungs clear, normal breath sounds, speaking full sentences Cardiovascular #1: regular rate, rhythm, no edema Cardiovascular #2: 2+ carotid (R), 2+ carotid (L), 2+ radial (R), 2+ radial (L) , 2+ dorsalis pedis (R), 2+ dorsalis pedis (L) Gastrointestinal: normal bowel sounds, non tender, soft, non-distended, no guarding, no rebound Rectal: deferred Genitourinary: normal inspection, no CVA tenderness Musculoskeletal: back normal, normal range of motion, gait/station normal, non- tender Neurologic: alert, motor strength/tone normal, oriented x3, sensory intact, responsive, speech normal Psychiatric: judgement/insight normal, memory normal, mood/affect normal, no suicidal/homicidal ideation Reflexes: 3+ bicep (R), 3+ bicep (L), 3+ tricep (R), 3+ tricep (L), 3+ knee (R) , 3+ knee (L) Lymphatic: no adenopathy Medical Decision Making Diagnostic Impression: Primary Impression: Jensen catheter problem Qualified Codes: T83.9XXA - Unspecified complication of genitourinary prosthetic device, implant and graft, initial encounter ER Course Hospital Course 68 yo M presents Differential diagnoses include: obstruction, UTI, BPH Clinical course Patient placed on stretcher. After initial history and physical I evaluated Jensen catheter which appears to be in place. No leakage. Bag is torn. Leg bag replaced. Safe for discharge and close outpatient follow-up. States he has a PMD and a urologist Diagnosis - jensen catheter problem Stable and discharged home with jensen + leg bag. Instructed to followup with PMD/urologist. Return to ED if symptoms recur or worsen Last Vital Signs Date Time Temp Pulse Resp B/P (MAP) Pulse Ox O2 Delivery O2 Flow Rate FiO2 08/09/19 22:52 98.6 16 129/79 95 Room Air 08/09/19 22:27 99 Status: improved Disposition: HOME, SELF-CARE Condition: Stable Referrals: [facility] Patient Instructions: Jensen Catheter Care, Adult, [id number] Bassam Austin MD August 09, 2019 23:17
== END 2019-08-09 22:52 | disposition home or self-care (01) ==
LOC: EMR 22:38
DX: T83.9XXA Unspecified complication of genitourinary prosthetic device, implant and graft, initial encounter (principal); Z88.8 Allergy status to other drugs, medicaments and biological substances; X58.XXXA Exposure to other specified factors, initial encounter; Y92.9 Unspecified place or not applicable; I10 Essential (primary) hypertension; F20.9 Schizophrenia, unspecified; F32.9 Major depressive disorder, single episode, unspecified
CPT/HCPCS: 99281

== ENCOUNTER 2019-09-11 14:13 | Emergency (ER) | payer MEDICARE ==
[~2019-09-11] VITALS: Ht 170.2 cm; Wt 79.4 kg
[2019-09-11 14:32] VITALS: BP 103/56
--- NOTE | 2019-09-11 14:33 | Emergency Room Report ---
History of Present Illness General Chief Complaint: Male Urogenital Problems Source: Patient Present Illness HPI Disclaimer: Please note that this report is being documented using DRAGON technology. This can lead to erroneous entry secondary to incorrect interpretation by the dictating instrument. HPI: 69-year-old male with a history of hypospadias and atonic bladder with chronic indwelling Jj presents for evaluation of Jj malfunction. He was seen in the emergency department 2 days ago after his bag tore however states the bag is now working fine but leaking urine around the catheter. He denies pain, bleeding, trauma, cloudy looking or dark urine, fever, chills, diarrhea, vomiting or any other complaints at this time. He follows with urologist, Dr. Velazquez. Allergies: Coded Allergies: LITHIUM (Unverified Allergy, Unknown, 12/19/13) COVID-19 Screening Contact w/high risk pt: No Recent Travel to affected area: No Experienced COVID-19 symptoms?: No COVID-19 Testing performed RESOURCE AGENT: No Nursing Documentation-[facility] Past Medical History: No History, Except For Hx Cardiac Problems: No - schizophrenia, depression Hx Hypertension: Yes Hx Asthma: No Hx COPD: No Hx Cancer: No Hx Gastrointestinal Problems: No - weak bladder Hx Neurological Problems: No Review of Systems All Other Systems: negative except mentioned in HPI Physical Exam Vital Signs Date Time Temp Pulse Resp B/P (MAP) Pulse Ox O2 Delivery O2 Flow Rate FiO2 20 14:18 98.4 105 20 119/81 (94) 95 Room Air General: Awake and alert, no acute distress HEENT: NC/AT. EOMI. Resp: Normal work of breathing Abdomen: Soft, nontender, nondistended. : Uncircumcised male, easily tractable foreskin, hypospadias with indwelling 16 Cambodian Jj catheter. Clear slightly yellow urine in leg bag. No surrounding edema, erythema, bleeding. Skin: Intact. No abrasions, laceration or rash over the exposed skin MSK: Normal tone and bulk. Moving all extremities. No obvious deformity. Neuro: Awake and alert. Mentating appropriately Medical Decision Making Diagnostic Impression: Primary Impression: Jj catheter problem ER Course This a 69-year-old male presenting for evaluation of Jj catheter leaking. Differential includes was not limited to obstruction, BPH, inappropriate size, Jj puncture among others. Denies any other complaints at this time. States the Jj is working appropriately but leaking from around the catheter. No trauma reported. Jj was exchanged from a 16 Cambodian to an 18 Cambodian. No leaking noted. Draining urine into the leg bag. Tolerated procedure well without complications. Will discharge to follow-up with his urologist, Dr. Velazquez. He is scheduled to see him on September 25 for his monthly evaluation and Jj change. Discussed reasons to return to the emergency department. He understands and agrees with this treatment plan. Last Vital Signs Date Time Temp Pulse Resp B/P (MAP) Pulse Ox O2 Delivery O2 Flow Rate FiO2 09/11/19 14:18 98.4 105 20 119/81 (94) 95 Room Air Disposition: HOME, SELF-CARE Condition: Stable Cisco Kramer MD Sep 11, 2019 14:33
== END 2019-09-11 15:08 | disposition home or self-care (01) ==
LOC: EMR 14:31
DX: T83.038A Leakage of other urinary catheter, initial encounter (principal); N31.2 Flaccid neuropathic bladder, not elsewhere classified; I10 Essential (primary) hypertension; Z88.8 Allergy status to other drugs, medicaments and biological substances
CPT/HCPCS: 51702; 99284

== ENCOUNTER 2019-12-17 10:42 | Emergency (ER) | payer MEDICARE ==
[~2019-12-17] VITALS: Ht 170.2 cm; Wt 86.2 kg
--- NOTE | 2019-12-17 11:04 | NUR ---
ED Nurse Note: pt walked in from [facility] for R foot pain x 1month. pt denies any trauma or injury to the area. pt states the pain is over the R distal philange but that the pain also sometimes "spreads." px is exacerbated by walking and bearing weight
--- NOTE | 2019-12-17 11:05 | Emergency Room Report ---
History of Present Illness General Chief Complaint: Lower Extremity Injury Source: Patient Present Illness HPI Patient is a 69-year-old male presents to the ER complaining of right second toe pain for the past month. He does not recall any trauma. He denies any fever or chills. He denies any other pain. Allergies: Coded Allergies: LITHIUM (Unverified Allergy, Unknown, 12/19/13) COVID-19 Screening Contact w/high risk pt: No Recent Travel to affected area: No Experienced COVID-19 symptoms?: No COVID-19 Testing performed AIR TWISTER WINDER: No Patient History Reviewed Nursing Documentation: PMH: Agreed; PSxH: Agreed Nursing Documentation-PMH Hx Cardiac Problems: No - schizophrenia, depression Hx Hypertension: Yes Hx Asthma: No Hx COPD: No Hx Cancer: No Hx Gastrointestinal Problems: No - weak bladder Hx Neurological Problems: No Review of Systems All Other Systems: negative except mentioned in HPI Physical Exam Vital Signs Date Time Temp Pulse Resp B/P (MAP) Pulse Ox O2 Delivery O2 Flow Rate FiO2 12/17/19 10:55 98.1 97 19 133/81 (98) 94 Room Air Sp02 EP Interpretation: reviewed, normal General Appearance: no apparent distress, alert, GCS 15, non-toxic Head: normocephalic, atraumatic Eyes: bilateral eye normal inspection, bilateral eye PERRL ENT: hearing grossly normal, normal pharynx, no angioedema, normal voice Neck: full range of motion, supple/symm/no masses Respiratory: chest non-tender, lungs clear, normal breath sounds, speaking full sentences Cardiovascular #1: regular rate, rhythm, no edema Gastrointestinal: non tender, soft Rectal: deferred Musculoskeletal: other - Right second toe flexion at the proximal metatarsal joint no erythema, warm extremity, 2+ pedal pulses, cap refill immediate normal range of motion Neurologic: panel wirer III-XII nml as tested, oriented x3 Psychiatric: no suicidal/homicidal ideation Skin: no rash Lymphatic: no adenopathy Medical Decision Making Diagnostic Impression: Primary Impression: Osteoarthritis ER Course Patient's x-ray demonstrates no acute fracture. Patient given Motrin with improvement of pain. After discussing risks and benefits of further diagnostics, treatment plans, as well as indications for and risks of admission, the patient is agreeable to being discharged home. I have explained that their evaluation and treatment in the emergency department today is an important step towards them achieving better health but that their evaluation today is not intended to replace further evaluation and treatment by a physician in their local clinic. I have explained that while the current findings suggest no immediate life threatening emergency they will require further evaluation and treatment by a physician of their choice in their area. They understand that it will be necessary for them to review the final reports of their ED visit with their clinic physician. We have reviewed indications for return to the Emergency Department. I have explained that additional time may need to pass and/or additional testing as an outpatient may be necessary before a definitive diagnosis can be made. They tell me they are willing to follow up as instructed within the timeframe I recommend. They appear to understand what we discussed. Additionally they understand that if they are unable to be seen by an outpatient physician they are welcome, and in fact should, return to the Emergency Department for a repeat evaluation. The patient is stable at time of discharge. Other X-Ray Diagnostic Results Other X-Ray Diagnostic Results : X-Ray ordered: Toes Right # of Views/Limited Vs Complete: 3 View Indication: Pain EP Interpretation: Yes Interpretation: no dislocation, no soft tissue swelling, no fractures Impression: No acute disease Electronically Signed by: Katlin Alvarado MD Last Vital Signs Date Time Temp Pulse Resp B/P (MAP) Pulse Ox O2 Delivery O2 Flow Rate FiO2 12/17/19 10:55 98.1 97 19 133/81 (98) 94 Room Air Disposition: HOME, SELF-CARE Condition: Stable Scripts Ibuprofen* (MOTRIN*) 600 Mg Tablet 600 MG ORAL FOUR TIMES A DAY, #30 TAB 0 Refills Prov: Katlin Alvarado M.D. 12/17/19 Additional Instructions: The patient was provided with discharge instructions, notified to follow-up with a primary care doctor and or specialist in the next 24-48 hours, and to return to the ED if they have worsening of their symptoms. Please note that this report is being documented using Lakoo technology. This can lead to erroneous entry secondary to incorrect interpretation by the dictating instrument. Katlin Alvarado M.D. Dec 17, 2019 11:05
--- NOTE | 2019-12-17 11:43 | Diagnostic Imaging Report ---
EXAM: X-RAY XRAY Toes 3v R CLINICAL HISTORY: Toe pain. COMPARISON: None FINDINGS: Total of 4 views of the right toes were obtained. No acute bony abnormality demonstrated.. There is no acute fracture, bony lesions or erosions. There is mild hallux valgus with degenerative changes of the first MTP joint. Other joint spaces are otherwise well-maintained. Surrounding soft tissue is normal. IMPRESSION: NO ACUTE BONY ABNORMALITY.
[2019-12-17] MEDS ORDERED: IBUPROFEN600 M1 ORAL (11:47)
[2019-12-17 11:50] VITALS: BP 133/81
--- NOTE | 2019-12-17 11:50 | NUR ---
ER DISCHARGE NOTE: Patient is cleared to be discharged per ERMD, pt is aox4, on room air, with stable vital signs. pt was given dc and prescription instructions, pt was able to verbalize understanding. pt states he is "feeling better" can walk without as much pain now. pt id band removed without complications. pt is able to ambulate with steady gait. pt took all belongings.
== END 2019-12-17 11:50 | disposition home or self-care (01) ==
LOC: EMR 11:21
DX: M19.90 Unspecified osteoarthritis, unspecified site (principal); M20.11 Hallux valgus (acquired), right foot; Z88.8 Allergy status to other drugs, medicaments and biological substances; I10 Essential (primary) hypertension; F20.9 Schizophrenia, unspecified; F32.9 Major depressive disorder, single episode, unspecified
CPT/HCPCS: 99283

== ENCOUNTER 2020-02-27 21:59 | Emergency (ER) | payer MEDICARE ==
[~2020-02-27] VITALS: Ht 170.2 cm; Wt 83.9 kg
[~2020-02-27 21:59] MED LIST changes: +IBUPROFEN600 M1 ORAL
[2020-02-27 22:10] VITALS: BP 155/85
--- NOTE | 2020-02-27 22:10 | NUR ---
ED Nurse Note: Shannen walked into ED from a board and care c/o catheter bag leaking. per patient jensen was re inserted today and has been leaking on his pants, patient denies any pain at this time just wants to have said bag changed. reason for having a catheter is due to having a weak bladder. patient oriented to bed and was placed in a gown
--- NOTE | 2020-02-27 22:20 | NUR ---
ED Nurse Note: jensen bag changed. patient also brought spare pants
--- NOTE | 2020-02-27 22:32 | Emergency Room Report ---
History of Present Illness General Chief Complaint: Male Urogenital Problems Source: Patient Present Illness HPI 69-year-old male with a history of chronic indwelling Jj. He presents with chief complaint of leaking from the Jj. He had it replaced today and was doing fine until tonight. He noticed that his pant legs were getting wet. His underwear is not wet. He could not tell where the leak is coming from. He has no fever chills but no nausea no vomiting. Nothing made it better. Nothing made it worse. 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/2019 COVID-19 Screening: Negative COVID-19 COVID-19 Testing Source: board and care Patient History Past Medical History: see triage record, old chart reviewed, HTN Past Surgical History: other Pertinent Family History: none Social History: Denies: smoking Immunizations: other Reviewed Nursing Documentation: PMH: Agreed; PSxH: Agreed Nursing Documentation-PMH Past Medical History: No History, Except For Hx Cardiac Problems: No - 2 stents Hx Hypertension: Yes Hx Asthma: No Hx COPD: No Hx Cancer: No Hx Gastrointestinal Problems: No - weak bladder Hx Neurological Problems: No Review of Systems Eye: Denies: eye pain, blurred vision ENT: Denies: ear pain, nose congestion, throat swelling Respiratory: Denies: cough, shortness of breath Cardiovascular: Denies: chest pain, palpitations Gastrointestinal: Denies: abdominal pain, diarrhea, nausea, vomiting Musculoskeletal: Denies: back pain, joint pain Skin: Denies: rash Neurological: Denies: headache, numbness Endocrine: Denies: increased thirst, increased urine Hematologic/Lymphatic: Denies: easy bruising All Other Systems: negative except mentioned in HPI Physical Exam Vital Signs Date Time Temp Pulse Resp B/P (MAP) Pulse Ox O2 Delivery O2 Flow Rate FiO2 02/27/20 22:03 97.2 85 16 155/85 (108) 95 Room Air Vitals with high blood pressure Sp02 EP Interpretation: reviewed, normal General Appearance: well appearing, no apparent distress, alert Head: normocephalic, atraumatic Eyes: bilateral eye PERRL, bilateral eye EOMI ENT: hearing grossly normal, normal pharynx Neck: full range of motion, supple, no meningismus Respiratory: chest non-tender, lungs clear, normal breath sounds Cardiovascular #1: regular rate, rhythm, no murmur Gastrointestinal: normal bowel sounds, non tender, no mass, no organomegaly, no bruit, non-distended Genitourinary: other - Jj with clear urine. There is no leakage at the meatus. I see no issue with the catheter itself. The leg bag appear to be intact but close off valve appeared to be leaking. Musculoskeletal: back normal, normal range of motion, gait/station normal Psychiatric: mood/affect normal Medical Decision Making Diagnostic Impression: Primary Impression: Jj catheter problem Qualified Codes: T83.9XXA - Unspecified complication of genitourinary prosthetic device, implant and graft, initial encounter ER Course this patient presents with problem with his Jj catheter. I suspect that the leg bag valve was defective. A new leg bag was placed. No longer leaking. Will discharge home. Last Vital Signs Date Time Temp Pulse Resp B/P (MAP) Pulse Ox O2 Delivery O2 Flow Rate FiO2 02/27/20 22:03 97.2 85 16 155/85 (108) 95 Room Air Status: improved Disposition: HOME, SELF-CARE Condition: Stable Referrals: Vinod Hein MD (PCP) Additional Instructions: Follow-up with your doctor in 7 days as needed. Return if symptoms worsen. Christiano Reddy MD Feb 27, 2020 22:32
[2020-02-27 22:35] VITALS: BP 147/82
--- NOTE | 2020-02-27 22:35 | NUR ---
ER DISCHARGE NOTE: Patient is cleared to be discharged per ERMD, pt is aox4, on room air, with stable vital signs. pt was given dc instructions, pt was able to verbalize understanding, pt id band removed without complications. pt is able to ambulate with steady gait. pt took all belongings.
== END 2020-02-27 22:35 | disposition home or self-care (01) ==
LOC: EMR 22:15
DX: T83.9XXA Unspecified complication of genitourinary prosthetic device, implant and graft, initial encounter (principal); I10 Essential (primary) hypertension; Z95.5 Presence of coronary angioplasty implant and graft; Z88.8 Allergy status to other drugs, medicaments and biological substances
CPT/HCPCS: 99282